=== PATIENT | female | born 1940 | race Caucasian/White ===

== ENCOUNTER 2019-11-30 01:25 | Emergency (ER) | payer OTHER ==
[2019-11-30] MEDS ORDERED: MECLIZINE HCL 12.5 MG TAB ONE (01:55)
[2019-11-30] MEDS ORDERED: NA CHLORIDE 0.9% 1,000 ML ONE (01:55)
[2019-11-30] MEDS ORDERED: DIAZEPAM 2 MG TABLET ONE (01:55)
[2019-11-30 02:10] LABS: Basophils % 1.2 % (0-1.3); Hematocrit 37.5 % (36.0-45.0); MPV 7.6 fL (7.6-11.3); RBC Red Blood Cell Count 4.09 M/uL (3.86-4.86)
[2019-11-30 02:12] LABS: Protime INR 0.89
[2019-11-30 02:13] LABS: Urine Blood TRACE (NEG); Urine Glucose NEGATIVE (NEG); Urine Protein NEGATIVE (NEG); Urine Specific Gravity 1.025 (1.005-1.030); Urine pH 8.5 (5.0-7.0)
[2019-11-30 02:16] LABS: Urine Culture Reflex Order NOT NEEDED
[2019-11-30 02:17] LABS: Urine Bacteria >50 /HPF (<20)
[2019-11-30 02:40] LABS: BUN Blood Urea Nitrogen 6 mg/dL (7-18); Bicarbonate 24 mmol/L (21-32); Glucose Level 119 mg/dL (74-106); Potassium 3.9 mmol/L (3.5-5.1); Sodium Level 132 mmol/L (136-145); Troponin (Emerg Dept Use Only) < 0.02 ng/mL (0.0-0.045)
[2019-11-30] MEDS ORDERED: NITROFURAN MACRO 100 MG CAP PO ONE (04:28)
--- NOTE | 2019-11-30 05:36 | EDPHYS ---
Physician Documentation [facility] Name: Rubén Donovan Age: 79 yrs Sex: Female : 1940 Arrival Date: 11/30/2019 Time: 01:29 Bed 6 Private MD: ED Physician Zhang Garcia HPI: 11/29 01:33 This 79 yrs old Female presents to ER via Unassigned with complaints of rn dizziness and vomiting. 01:33 The patient presents with sense of spinning, vertigo. Onset: The symptoms/episode rn began/occurred just prior to arrival. Context: occurred at home, occurred while the patient was asleep, just prior to the episode the patient experienced no apparent symptoms. Modifying factors: The symptoms are alleviated by closing eyes, holding head still, the symptoms are aggravated by movement of head. Severity of symptoms: At their worst the symptoms were moderate in the emergency department the symptoms are unchanged. The patient has experienced a previous episode. Reports in bed, turned head and was extremely dizzy, assoc with vomiting, and worse with head movement, better with holding head still and closing eyes. Has had vertigo before and feels similar. . Historical: - Allergies: 01:56 Hydromorphone; lp1 01:56 Morphine; lp1 01:56 Codeine; lp1 01:56 Demerol; lp1 01:56 tramadol; lp1 - Home Meds: 01:56 Plavix Oral [Active]; Coreg Oral [Active]; Aspirin Oral [Active]; Flexeril Oral lp1 [Active]; Clonidine Oral [Active]; levothyroxine oral [Active]; - PMHx: 01:56 Hypertension; TIA; maxwell's palsy; Hypothyroidism; Hyperlipidemia; lp1 - PSHx: 01:56 Heart stents; Hysterectomy; Bladder suspension; lp1 - Immunization history:: Adult Immunizations up to date. - Family history:: not pertinent. - Social history:: Smoking status: Patient reports the use of cigarette tobacco products, smokes one-half pack cigarettes per day. - Hospitalizations: : No recent hospitalization is reported. ROS: 01:33 Constitutional: Negative for fever, chills, and weight loss, Eyes: Negative for injury, rn pain, redness, and discharge, Neck: Negative for injury, pain, and swelling, Cardiovascular: Negative for chest pain, palpitations, and edema, Respiratory: Negative for shortness of breath, cough, wheezing, and pleuritic chest pain, Abdomen/GI: Negative for abdominal pain, diarrhea, and constipation MS/Extremity: Negative for injury and deformity, Skin: Negative for injury, rash, and discoloration, Neuro: Negative for headache, weakness, numbness, tingling, and seizure. Exam: 01:33 Constitutional: This is a well developed, well nourished patient who is awake, alert, rn eyes closed Head/Face: Normocephalic, atraumatic. Eyes: Pupils equal round and reactive to light, extra-ocular motions intact. Symptoms worse with lateral eye gaze either way ENT: MMM Neck: Trachea midline, no thyromegaly or masses palpated, and no cervical lymphadenopathy. Supple, full range of motion without nuchal rigidity, or vertebral point tenderness. No Meningismus. Cardiovascular: Regular rate and rhythm. No pulse deficits. Respiratory: Lungs have equal breath sounds bilaterally, clear to auscultation. No increased work of breathing, no retractions or nasal flaring. Abdomen/GI: soft, non-tender MS/ Extremity: Pulses equal, no cyanosis. Neurovascular intact. Full, normal range of motion. Equal circumference. Neuro: Awake and alert, GCS 15, oriented to person, place, time, and situation. + (chronic) left upper and lower facial weakness. Moves all 4 extremities with 5/5 strength and sensation intact. Normal speech. Normal finger to nose and coordination. Vital Signs: 01:30 BP 213 / 105; Pulse 81; Resp 18; Pulse Ox 99% on R/A; Weight 49.9 kg (R); Pain 0/10; lp1 01:40 BP 205 / 89; Pulse 73; Resp 17; Pulse Ox 99% on R/A; lp1 02:30 BP 188 / 158; Pulse 84; Resp 16; Pulse Ox 98% ; rr5 03:10 BP 178 / 79; Pulse 77; Resp 14; Pulse Ox 99% on R/A; rr5 03:39 Temp 97.6(O); lp1 04:01 BP 179 / 69; Pulse 79; Resp 18; Pulse Ox 98% ; ah 05:15 BP 192 / 80; Pulse 71; Resp 16; Pulse Ox 98% ; ah MDM: 01:29 Patient medically screened. rn 03:21 ED course: Pt improved, BP has improved without intervention, no acute findings on ct rn head, ct head angio and neck angio pending results. . 04:23 Differential diagnosis: CVA, idiopathic dizziness, TIA, vertigo. Data reviewed: vital rn signs, nurses notes, lab test result(s), EKG, radiologic studies. Counseling: I had a detailed discussion with the patient and/or guardian regarding: the historical points, exam findings, and any diagnostic results supporting the discharge/admit diagnosis, lab results, radiology results, the need for outpatient follow up, to return to the emergency department if symptoms worsen or persist or if there are any questions or concerns that arise at home. Response to treatment: the patient's symptoms have markedly improved after treatment. ED course: Pt with UTI, and what seems like vertigo. CT head and ct head/neck angio neg for acute stenosis or blockage. Pt improved, BP improved. Plan to dc with abx if can ambulate and send home safely. . 05:32 ED course: Patient ambulated well with minimal assistance, patient does not want to be rn admitted, states she feels better and wants to go home, will dc home with abx for UTI, and meclizine for vertigo. Given return precautions. Told her safer thing to do would be to put her in hospital, but patient insists on trial at home. . 11/29 01:30 Order name: Basic Metabolic Panel; Complete Time: 02:58 rn 11/29 01:30 Order name: CBC with Diff; Complete Time: 02:58 rn 11/29 01:30 Order name: Protime (+inr); Complete Time: 02:58 rn 11/29 01:30 Order name: Ptt, Activated; Complete Time: 02:58 rn 11/29 01:30 Order name: Troponin (emerg Dept Use Only); Complete Time: 02:58 rn 11/29 01:40 Order name: Urine Microscopic Only rn 11/29 01:30 Order name: CT Head Brain wo Cont rn 11/29 01:40 Order name: Urine Microscopic Only; Complete Time: 02:58 EDMS 11/29 01:42 Order name: [facility] 11/29 01:42 Order name: Urine Dipstick--Ancillary (enter results); Complete Time: 02:58 [facility] 11/29 02:14 Order name: CT Head Angio rn 11/29 02:14 Order name: CT Neck Angio rn 11/29 01:30 Order name: EKG; Complete Time: 01:32 rn 11/29 01:30 Order name: Cardiac monitoring; Complete Time: :59 rn 11/29 01:30 Order name: EKG - Nurse/Tech; Complete Time: 02:23 rn 11/29 01:30 Order name: IV Saline Lock; Complete Time: :59 rn 11/29 01:30 Order name: Labs collected and sent; Complete Time: :59 rn 11/29 01:30 Order name: NPO; Complete Time: :59 rn 11/29 01:30 Order name: O2 Per Protocol; Complete Time: :59 rn 11/29 01:30 Order name: O2 Sat Monitoring; Complete Time: :59 rn 11/29 01:30 Order name: Urine Dipstick-Ancillary (obtain specimen); Complete Time: 02:00 rn Administered Medications: 02:22 Drug: NS 0.9% 500 ml Route: IV; Rate: bolus; Site: right antecubital; 03:30 Follow up: Response: No adverse reaction; IV Status: Completed infusion; IV Intake: ah 500ml 02:22 Drug: Meclizine 50 mg Route: PO; 03:25 Follow up: Response: No adverse reaction 02:22 Drug: Valium 2 mg Route: PO; 03:25 Follow up: Response: No adverse reaction 03:25 Follow up: Response: No adverse reaction 04:20 Drug: Macrobid 100 mg Route: PO; 05:20 Follow up: Response: No adverse reaction Disposition: 11/30/19 05:35 Discharged to Home. Impression: Vertigo. - Condition is Stable. - Discharge Instructions: Urinary Tract Infection, Adult, Vertigo. - Prescriptions for Zofran ODT 4 mg Oral tablet,disintegrating - place 1 tablet by TRANSLINGUAL route every 8 hours As needed; 20 tablet. Meclizine 25 mg Oral Tablet - take 1 tablet by ORAL route every 8 hours As needed; 30 tablet. Macrobid 100 mg Oral Capsule - take 1 capsule by ORAL route every 12 hours for 7 days; 14 capsule. - Medication Reconciliation Form, Thank You Letter, Antibiotic Education, Prescription Opioid Use form. - Follow up: Chris Feliz MD; When: 2 - 3 days; Reason: Recheck today's complaints, Re-evaluation by your physician. - Problem is new. - Symptoms have improved. Signatures: Dispatcher [employer] EDND Zhang Garcia MD MD rn Pena, Laura RN RN 1 Morelia Burks RN RN Corrections: (The following items were deleted from the chart) 02:18 01:41 Urine Culture+BA.LAB.BRZ ordered. EDND EDND 02:18 01:43 UA MICROSCOPIC+U.LAB.BRZ ordered. [facility] EDND 06:20 05:35 11/30/2019 05:35 Discharged to Home. Impression: Vertigo. Condition is Stable. ah Forms are Medication Reconciliation Form, Thank You Letter, Antibiotic Education, Prescription Opioid Use. Follow up: Chris Feliz; When: 2 - 3 days; Reason: Recheck today's complaints, Re-evaluation by your physician. Problem is new. Symptoms have improved. rn
--- NOTE | 2019-11-30 05:36 | ER ---
Nurse's Notes [facility] Name: Rubén Donovan Age: 79 yrs Sex: Female : 1940 Arrival Date: 11/30/2019 Time: 01:29 Bed 6 Private MD: Diagnosis: Vertigo Presentation: 11/29 01:30 Chief complaint: EMS states: Called for patient with dizziness and vomiting that began lp1 about 2330 tonight; States dizziness and nausea with movement of head, hx of vertigo and TIA; Per EMS, patient hypertensive at 210/120. 01:30 Coronavirus screen: The patient has NOT traveled to [place] in the past 14 days. The lp1 patient has NOT had contact with known and/or suspected case of Coronavirus. Ebola Screen: No symptoms or risks identified at this time. Initial Sepsis Screen: Does the patient meet any 2 criteria? No. Patient's initial sepsis screen is negative. Does the patient have a suspected source of infection? No. Patient's initial sepsis screen is negative. Risk Assessment: Do you want to hurt yourself or someone else? Patient reports no desire to harm self or others. Care prior to arrival: Medication(s) given: zofran 4 mg, IV initiated. 20 GA, in the right antecubital area, Glucose check: 150. 01:30 Method Of Arrival: EMS: [facility] lp1 01:30 Acuity: CHAPIN 2 lp1 02:43 Onset of symptoms was November 29, 2019. ah Historical: - Allergies: 01:56 Hydromorphone; lp1 01:56 Morphine; lp1 01:56 Codeine; lp1 01:56 Demerol; lp1 01:56 tramadol; lp1 - Home Meds: 01:56 Plavix Oral [Active]; Coreg Oral [Active]; Aspirin Oral [Active]; Flexeril Oral lp1 [Active]; Clonidine Oral [Active]; levothyroxine oral [Active]; - PMHx: 01:56 Hypertension; TIA; maxwell's palsy; Hypothyroidism; Hyperlipidemia; lp1 - PSHx: 01:56 Heart stents; Hysterectomy; Bladder suspension; lp1 - Immunization history:: Adult Immunizations up to date. - Family history:: not pertinent. - Social history:: Smoking status: Patient reports the use of cigarette tobacco products, smokes one-half pack cigarettes per day. - Hospitalizations: : No recent hospitalization is reported. Screenin:53 Abuse screen: Denies threats or abuse. Denies injuries from another. Nutritional lp1 screening: No deficits noted. Tuberculosis screening: No symptoms or risk factors identified. Fall Risk Total De Dios Fall Scale indicates High Risk Score (45 or more points). Fall prevention measures have been instituted. Side Rails Up X 2 As available patient and family educated on Fall Prevention Program and Strategies. Assessment: 02:00 General: Appears uncomfortable, Behavior is calm, cooperative. Pain: Denies pain. ah Neuro: Level of Consciousness is awake, alert, Oriented to person, place, time, situation, Aerodynamic Consultant are equal bilaterally Gait is Speech is normal, left side affected by bells palsy. Pupils are PERRLA, Reports dizziness, since 1130pm. Cardiovascular: Heart tones S1 S2 present Capillary refill < 3 seconds Patient's skin is warm and dry. Pulses are palpable in right radial artery, right dorsalis pedis artery, left radial artery and left dorsalis pedis artery. Respiratory: Airway is patent Respiratory effort is even, unlabored, Respiratory pattern is regular, symmetrical, Breath sounds are clear bilaterally. GI: Abdomen is non-distended, Bowel sounds present X 4 quads. Reports vomiting, since waking up dizzy. : Reports burning with urination. EENT: No signs and/or symptoms were reported regarding the EENT system. Derm: No signs and/or symptoms reported regarding the dermatologic system. Skin is intact, is healthy with good turgor, Skin is dry, Skin temperature is warm. 03:00 Reassessment: Patient appears in no apparent distress at this time. Patient and/or ah family updated on plan of care and expected duration. Pain level reassessed. Patient is alert, oriented x 3, equal unlabored respirations, skin warm/dry/pink. 04:15 Reassessment: Patient appears in no apparent distress at this time. Patient and/or ah family updated on plan of care and expected duration. Pain level reassessed. Patient is alert, oriented x 3, equal unlabored respirations, skin warm/dry/pink. Stood Pt up bedside, attempted to walk and Pt states that she is still too dizzy and is unable to walk at this time. Assisted Pt back into bed and she is setting up. She states that she wants to try again soon. 05:10 Reassessment: Pt ambulated with assist x2 staff approx 40 ft. She states that shes ah still slightly dizzy but denies any nausea. 06:19 Reassessment: Pt able to ambulate with staff x1 and . Pt more steady on feet at this time. She states she feels confident going home. Vital Signs: 01:30 BP 213 / 105; Pulse 81; Resp 18; Pulse Ox 99% on R/A; Weight 49.9 kg (R); Pain 0/10; lp1 01:40 BP 205 / 89; Pulse 73; Resp 17; Pulse Ox 99% on R/A; lp1 02:30 BP 188 / 158; Pulse 84; Resp 16; Pulse Ox 98% ; rr5 03:10 BP 178 / 79; Pulse 77; Resp 14; Pulse Ox 99% on R/A; rr5 03:39 Temp 97.6(O); lp1 04:01 BP 179 / 69; Pulse 79; Resp 18; Pulse Ox 98% ; ah 05:15 BP 192 / 80; Pulse 71; Resp 16; Pulse Ox 98% ; ah ED Course: 01:29 Patient arrived in ED. rn 01:29 Zhang Garcia MD is Attending Physician. rn 01:35 Patient has correct armband on for positive identification. Bed in low position. Call lp1 light in reach. bus monitor on. Pulse ox on. NIBP on. 01:44 Mayte Vasquez, MAISHA is Primary Nurse. lp1 01:45 Arm band placed on right wrist. lp1 01:[address] via stretcher. lp1 01:52 Triage completed. lp1 01:53 Maintain EMS IV. Dressing intact. Good blood return noted. Site clean \T\ dry. Gauge \T\ lp 1 site: 20g IV to R AC. 02:10 CT Head Brain wo Cont In Process Unspecified. EDMS 02:[address] via stretcher. ah 03:27 CT Head Angio In Process Unspecified. EDMS 03:29 CT Neck Angio In Process Unspecified. EDMS 05:35 Chris Feliz MD is Referral Physician. rn 06:00 No provider procedures requiring assistance completed. IV discontinued, intact, ah bleeding controlled, No redness/swelling at site. Pressure dressing applied. Administered Medications: 02:22 Drug: NS 0.9% 500 ml Route: IV; Rate: bolus; Site: right antecubital; 03:30 Follow up: Response: No adverse reaction; IV Status: Completed infusion; IV Intake: ah 500ml 02:22 Drug: Meclizine 50 mg Route: PO; 03:25 Follow up: Response: No adverse reaction 02:22 Drug: Valium 2 mg Route: PO; 03:25 Follow up: Response: No adverse reaction 03:25 Follow up: Response: No adverse reaction 04:20 Drug: Macrobid 100 mg Route: PO; 05:20 Follow up: Response: No adverse reaction ah Intake: 03:30 IV: 500ml; Total: 500ml. Outcome: 05:35 Discharge ordered by . rn 06:00 Discharged to home via wheelchair. 06:00 Condition: stable 06:00 Discharge instructions given to patient, family, Instructed on discharge instructions, follow up and referral plans. medication usage, Demonstrated understanding of instructions, follow-up care, medications, Prescriptions given X 1, 2, 3. 06:20 Patient left the ED. Addendum: 12/02/2019 07:26 Addendum: Culture Results: Positive urine culture. No further action required. Bacteria e b sensitive to prescribed antibiotic. Signatures: Dispatcher [employer] EDMS Zhang Garcia MD MD rn Pena, Laura RN RN lp1 Starr Solis Raymond, RN RN rr5 Morelia Burks RN RN Corrections: (The following items were deleted from the chart) 11/29 02:01 01:30 BP 213 / 105; Pulse 81bpm; Resp 18bpm; Pulse Ox 99% RA; lp1 lp1
[2019-11-30 06:40] VITALS: TEMP 97.6
[2019-11-30 06:42] VITALS: O2SAT 98
[2019-11-30 06:43] VITALS: BP 192/80
--- NOTE | 2019-11-30 08:24 | EKG ---
Test Date: 2019-11-30 Test Time: 02:24:44 Structural Steel Painter: JACQUELINE MEASUREMENT RESULTS: Intervals: Rate: 80 LA: 204 QRSD: 82 QT: 398 QTc: 459 [place]: P: 69 LA: 204 QRS: -25 T: 75 INTERPRETIVE STATEMENTS: Normal sinus rhythm Possible Left atrial enlargement Left ventricular hypertrophy Abnormal ECG Compared to ECG 02/18/2014 10:58:32 Left ventricular hypertrophy now present Electronically Signed On 11-30-19 08:23:32 MANAGER GROUP by Carlos Burks
--- NOTE | 2019-11-30 10:11 | RAD REPORT ---
EXAM DESCRIPTION: 1. CT neck angiography with IV contrast. 2. CT head angiography with IV contrast CLINICAL HISTORY: 79-year-old female with dizziness and vomiting. TECHNIQUE: Following dynamic intravenous nonionic contrast infusion, multiple axial helical CT image s with multiplanar reconstructions were obtained through the head and neck. No MIP images were obtain ed. The CT study is performed according to ALARA (as low as reasonably achievable) or ALARA/IMAGE GEN TLY, with automatic adjustment of mA and/or kV according to patient size. Performed on: 11/30/2019 at 2:32 AM COMPARISON: Head CT performed on 11/30/2019 FINDINGS: CTA NECK: AORTA: The aortic arch is well imaged and demonstrates conventional branching. The origins of the left sub clavian artery, left common carotid artery and innominate artery are patent. There is mild stenosis i nvolving the proximal left common carotid artery. There are atherosclerotic calcifications along the origin of the left subclavian artery. VERTEBRAL ARTERIES: The LEFT vertebral artery is normal in caliber and contour without evidence of dissection. There may be mild to moderate stenosis at the origin of the LEFT vertebral artery. Additionally, the LEFT verte bral artery appears to terminate in a posterior inferior cerebellar artery. The RIGHT vertebral artery is normal in caliber and contour without evidence of dissection or signifi cant stenosis. CAROTID ARTERIES: The LEFT common carotid artery is unremarkable. There are mild atherosclerotic calcifications along t he distal LEFT common carotid artery. There is no evidence of significant stenosis, dissection or occ lusion. The carotid bulb demonstrates moderate calcified atherosclerotic plaque. There is a mild st enosis of the proximal LEFT internal carotid artery measuring less than 50%. The remainder of the LEF T internal carotid artery is normal in caliber and contour without evidence of significant stenosis, dissection or occlusion. There are atherosclerotic calcifications along the proximal LEFT external ca rotid artery. The LEFT external carotid artery is otherwise unremarkable There is a stent along the distal RIGHT common carotid artery. The RIGHT common carotid artery is pat ent and is grossly unremarkable. There is no evidence of significant stenosis, dissection or occlusio n. The carotid bulb moderate calcified atherosclerotic plaque. There is mild stenosis of the proximal RIGHT internal carotid artery measuring less than 50%. The remainder of the RIGHT internal carotid a rtery is unremarkable. There is no evidence of stenosis, dissection or occlusion. There are mild athe rosclerotic calcifications involving the proximal RIGHT external carotid artery. The RIGHT external c arotid artery is unremarkable. CTA HEAD: LEFT: INTERNAL CAROTID ARTERY: The distal internal carotid artery is unremarkable. There are atherosclerotic calcifications along th e cavernous LEFT ICA. 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 ANTERIOR CEREBRAL ARTERY: he A1 segment is normal in caliber and contour. The A2 segment is normal i n caliber and contour. The region of the anterior communicating artery is unremarkable. MIDDLE CEREBRAL ARTERY: The M1 segment is normal in caliber and contour. The M2 branches normal in c aliber and contour. POSTERIOR CEREBRAL ARTERY: he P1 segment is normal in caliber and contour. The P2 segment is normal in caliber and contour. The left posterior communicating artery is patent. VERTEBRAL ARTERY: The intradural left vertebral artery appears to terminate in the posterior inferio r cerebellar artery. RIGHT: INTERNAL CAROTID ARTERY: The distal internal carotid artery is unremarkable. There are atherosclerotic calcifications along th e cavernous RIGHT ICA. ANTERIOR CEREBRAL ARTERY: The A1 segment is normal in caliber and contour. The A2 segment is normal in caliber and contour. MIDDLE CEREBRAL ARTERY: he M1 segment is normal in caliber and contour. The M2 branches normal in ca liber and contour. POSTERIOR CEREBRAL ARTERY: The P1 segment is normal in caliber and contour. The P2 segment is normal in caliber and contour. The right posterior communicating artery is patent. VERTEBRAL ARTERY: The intradural right vertebral artery is normal in caliber and contour. BASILAR ARTERY: The basilar artery is small in caliber but is normal in contour and is patent withou t significant stenosis. DURAL VENOUS SINUSES: The dural venous sinuses are patent. NON-ANGIOGRAPHIC FINDINGS: There is scarring and/or fibrosis in the visualized lung apices. The thyroid gland is within normal l imits. There is mild mucosal thickening of the left maxillary sinus. The orbital contents are grossly unremarkable. There is mild to moderate degenerative disc disease at C4-C5. IMPRESSION: CTA NECK: 1. Mild stenosis at the origin of the left vertebral artery. 2. Mild stenosis involving the proximal internal carotid arteries bilaterally measuring less than 50% as per the NASCET criteria. 3. Patent stent within the distal right common carotid artery. CTA HEAD: 1. The distal left vertebral artery appears to terminate in a posterior inferior cerebellar artery. 2. 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 3. The basilar artery is patent but diminutive in caliber throughout its course. 4. Otherwise, unremarkable intracranial CTA. There is no significant stenosis, occlusion or vascular malformation. Electronically signed by: Leatha Zheng DO 11/30/2019 4:06 AM SUPERVISOR FABRICATION AND ASSEMBLY Due to temporary technical issues with the PACS/Fluency reporting system, reports are being signed by the in house radiologist as a courtesy to ensure prompt reporting. The interpreting radiologist is f ully responsible for the content of the report.
--- NOTE | 2019-11-30 10:13 | RAD REPORT ---
EXAM DESCRIPTION: CT head without IV contrast CLINICAL HISTORY: 79-year-old female with dizziness and vomiting TECHNIQUE: Multiple axial CT images of the brain were performed followed by sagittal and coronal rec onstructed images. The CT study is performed according to ALARA (as low as reasonably achievable) or ALARA/IMAGE GENTLY, with automatic adjustment of mA and/or kV according to patient size. Performed on: 11/30/2019 at 1:49 AM Comparisons: Head CT performed on 06/21/2017. FINDINGS: There is no evidence of mass, acute mass effect or midline shift. There are no acute extra -axial fluid collections. There is no evidence of acute intracranial hemorrhage. There are calcific ations along the cavernous carotid arteries. The cerebral sulci and ventricles are prominent consistent with mild cerebral volume loss. There are scattered areas of decreased attenuation within the subcortical and periventricular white m atter most likely due to mild chronic microangiopathy. There is no significant mucosal thickening of the paranasal sinuses. The mastoid air cells are clear. The orbital contents are grossly unremarkable. No acute osseous abnormalities are identified. No focal soft tissue abnormalities are identified. IMPRESSION: 1. There is no evidence of acute intracranial pathology. 2. Mild cerebral atrophy with findings consistent with mild chronic microangiopathy. Electronically signed by: Leatha Zheng DO 11/30/2019 2:40 AM LIFE SCIENCE TEACHER Due to temporary technical issues with the PACS/Fluency reporting system, reports are being signed by the in house radiologist as a courtesy to ensure prompt reporting. The interpreting radiologist is f ully responsible for the content of the report.
== END 2019-11-30 06:20 | disposition home or self-care (01) ==
LOC: ER 01:25
DX: R42 Dizziness and giddiness (principal); I10 Essential (primary) hypertension; E03.9 Hypothyroidism, unspecified; E78.5 Hyperlipidemia, unspecified; Z95.818 Presence of other cardiac implants and grafts; F17.210 Nicotine dependence, cigarettes, uncomplicated; Z79.01 Long term (current) use of anticoagulants; Z79.82 Long term (current) use of aspirin; Z88.5 Allergy status to narcotic agent; Z86.73 Personal history of transient ischemic attack (TIA), and cerebral infarction without residual deficits
CPT/HCPCS: 93005; 87088; 85025; 87086; 80048; 36415; 85610; 85730; 87077; 87186; 84484; 70450; 70496; 70498; 96360; 99285; Q9967 ×2; J7030; 81003; 81015; J8597

== ENCOUNTER 2021-10-28 13:11 | Emergency (ER) | payer OTHER, BC ==
--- OUTSIDE RECORDS SUMMARY | 2021-10-28 13:13 | XMS REPORT | Continuity of Care Document ---
:1940 Author Organization [facility] t Address [facility] [address] [place] [address] Care Team Providers Name Role Phone SOLIS, Rohit Attending Clinician Unavailable MORIAH Attending Clinician Unavailable Solis OSCAR, Rohit Attending Clinician Patrick HERNANDEZ Attending Clinician John Abreu MD Attending Clinician Only, Test Attending Clinician Unavailable Doctor Unassigned, Name Attending Clinician Unavailable Pob, Lab Main Attending Clinician Unavailable Rohit CRUZ Admitting Clinician Unavailable Solis OSCAR, Rohit Admitting Clinician Payers Payer Name Policy Type Policy Number Effective Date Expiration Date Iam tay MEDICARE PART A [id number] 2006 \T\ B 00:00:00 [employer] [id number] 2012 00:00:00 Problems This patient has no known problems. Allergies, Adverse Reactions, Alerts Allergy Allergy Status Severity Reaction(s) Onset Inactive Treating Comm ents Source Name Type Date Date Clinician Nitrofur Propensi Active Rash 2020-0 Univer s antoin ty to 06-18 ity of Monohyd/ adverse 00:00: [place] M-Cryst reaction 00 Medical s Branch Morphine Propensi Active Nausea 2020-0 Univer s ty to and/or 06-18 ity of adverse Vomiting 00:00: [place] reaction 00 Medical s Branch NITROFUR DRUG Active Rash 2020-0 Univers ANTOIN - ity of MONOHYD/ 00:00: [place] M-CRYST 00 Medical Branch MORPHINE DRUG Active N/V 2020-0 Univers INGREDI 06-18 ity of 00:00: [place] 00 Medical Branch CODEINE DRUG Active N/V 2020-0 Univers INGREDI -17 ity of 00:00: [place] 00 Medical Branch HYDROMOR DRUG Active N/V Univers PHONE INGREDI 06-14 ity of 00:00: [place] 00 Medical Branch Codeine Propensi Active Nausea Univers ty to and/or 06-14 ity of adverse Vomiting 00:00: [place] reaction 00 Medical s Branch Hydromor Propensi Active Nausea Univer s phone ty to and/or 06-14 ity of adverse Vomiting 00:00: [place] reaction 00 Medical s Branch Social History Social Habit Start Date Stop Date Quantity Comments Source Exposure to Not sure [facility] SARS-CoV-2 (event) Medica l Branch Sex Assigned At [facility] Medical Branch Tobacco use and 2020-09-12 2020-09-12 Never used [facility] exposure 00:00:00 00:00:00 Medical Branch Smoking Status Start Date Stop Date Source Unknown if ever smoked [facility] Current every day smoker 2020-09-12 [facility] Start Stop Current Ordering Indication Dosage Frequency Signature Comments Components Source Medication Medication Date Date Medication? Clinician (SIG) Name Name carvediloL 2019-09 Yes 12.5mg Take 12.5 Univers 12.5 mg 2-16 mg by ity of tablet 22:19: mouth 2 [place] 53 (two) Medical times Branch daily with meals. Levothyroxi 2019-09 Yes 1{capsu Take 1 U nivers ne 25 mcg 2-16 le} capsule by ity of capsule 22:19: mouth [place] 53 daily. Medical Branch cyclobenzap 2019-09 Yes 10mg Take 10 mg Univers rine 10 mg 2-16 by mouth 3 ity of tablet 22:19: (three) [place] 53 times Medical daily. Branch gabapentin 2019-09 Yes 300mg Take 300 Un rad ER 300 mg 2-16 mg by ity of tablet, 22:19: mouth [place] extended 53 daily. Medical release 24 Branch hr ASA/calcium 2019-09 Yes 81mg Take 81 mg Univers carb/mag/al 2-16 by mouth ity of uminum 22:19: daily. [place] (ASPIRIN, 53 Medical BUFFERED Branch ORAL) HYDROcodone 2019-09 Yes 2745 1{tbl} Take 1 Un rad -acetaminop 2-16 tablet by ity of hen 5-325 22:19: mouth [place] mg tablet 53 every 6 Medical (six) Branch hours as needed. Indication s: chronic pain vit 2019-09 Yes 1{capsu Take 1 Univers C-E-zinc 2-16 le} capsule by ity o f ox-megan-lut 22:19: mouth 2 [place] -zeax 53 (two) Medical (ICAPS times Branch AREDS2) 250 daily. mg-200 unit -12.5 mg-1 mg Cap ondansetron 2019-09- No 4mg 4 mg, Slow Univers (ZOFRAN 11-13 IV Push, ity of (PF)) 22:00: 20:25 ONCE, 1 [place] injection 4 00 :00 dose, Wed Med ical mg 09/12/20 Branch at 1600, Routine, PACU acetaminoph 2019-09- No 1000mg 1,000 mg, Univers en ADULT -09-12 IV ity of (OFIRMEV) 20:45: 20:10 [place]fusion, [place] injection 00 :00 Administer Medi lucio 1,000 mg over 15 Branch Minutes, ONCE, 1 dose, 09/12/20 at 1445, Routine, PACU
Indicatio n: Perioperat gerardo Patient hydralAZINE 2019-09 2020- No 10mg 10 mg, Uni vers (APRESOLINE 11-13- Slow IV ity of ) injection 20:15: 19:23 [place], [place] 10 mg 00 :00 ONCE, 1 Medical dose, Wed Branch 09/12/20 at 1415, STAT, PACU
In dication: Hypertensi ve Emergency vit 2019-09 Yes 1{capsu Take 1 Univers C-E-zinc 2-16 le} capsule by ity o f ox-megan-lut 18:58: mouth 2 [place] -zeax 59 (two) Medical (ICAPS times Branch AREDS2) 250 daily. mg-200 unit -12.5 mg-1 mg Cap carvediloL 2019-09 Yes 12.5mg Take 12.5 Univers 12.5 mg 2-16 mg by ity of tablet 18:58: mouth 2 [place] 59 (two) Medical times Branch daily with meals. Levothyroxi 2019-09 Yes 1{capsu Take 1 U nivers ne 25 mcg 2-16 le} capsule by ity of capsule 18:58: mouth [place] 59 daily. Medical Branch cyclobenzap 2019-09 Yes 10mg Take 10 mg Univers rine 10 mg 2-16 by mouth 3 ity of tablet 18:58: (three) [place] 59 times Medical daily. Branch gabapentin 2019-09 Yes 300mg Take 300 Un rad ER 300 mg 2-16 mg by ity of tablet, 18:58: mouth [place] extended 59 daily. Medical release 24 Branch hr ASA/calcium 2019-09 Yes 81mg Take 81 mg Univers carb/mag/al 2-16 by mouth ity of uminum 18:58: daily. [place] (ASPIRIN, 59 Medical BUFFERED Branch ORAL) HYDROcodone 2019-09 Yes 2745 1{tbl} Take 1 Un rad -acetaminop 2-16 tablet by ity of hen 5-325 18:58: mouth [place] mg tablet 59 every 6 Medical (six) Branch hours as needed. Indication s: chronic pain vit 2019-09 Yes 1{capsu Take 1 Univers C-E-zinc 2-16 le} capsule by ity o f ox-megan-lut 18:58: mouth 2 [place] -zeax 59 (two) Medical (ICAPS times Branch AREDS2) 250 daily. mg-200 unit -12.5 mg-1 mg Cap carvediloL 2019-09 Yes 12.5mg Take 12.5 Univers 12.5 mg 2-16 mg by ity of tablet 18:58: mouth 2 [place] 59 (two) Medical times Branch daily with meals. Levothyroxi 2019-09 Yes 1{capsu Take 1 U nivers ne 25 mcg 2-16 le} capsule by ity of capsule 18:58: mouth [place] 59 daily. Medical Branch cyclobenzap 2019-09 Yes 10mg Take 10 mg Univers rine 10 mg 2-16 by mouth 3 ity of tablet 18:58: (three) [place] 59 times Medical daily. Branch gabapentin 2019-09 Yes 300mg Take 300 Un rad ER 300 mg 2-16 mg by ity of tablet, 18:58: mouth [place] extended 59 daily. Medical release 24 Branch hr ASA/calcium 2019-09 Yes 81mg Take 81 mg Univers carb/mag/al 2-16 by mouth ity of uminum 18:58: daily. [place] (ASPIRIN, 59 Medical BUFFERED Branch ORAL) HYDROcodone 2019-09 Yes 2745 1{tbl} Take 1 Un rad -acetaminop 2-16 tablet by ity of hen 5-325 18:58: mouth [place] mg tablet 59 every 6 Medical (six) Branch hours as needed. Indication s: chronic pain vit 2019-09 Yes 1{capsu Take 1 Univers C-E-zinc 2-16 le} capsule by ity o f ox-megan-lut 18:58: mouth 2 [place] -zeax 59 (two) Medical (ICAPS times Branch AREDS2) 250 daily. mg-200 unit -12.5 mg-1 mg Cap carvediloL 2019-09 Yes 12.5mg Take 12.5 Univers 12.5 mg 2-16 mg by ity of tablet 18:58: mouth 2 [place] 59 (two) Medical times Branch daily with meals. Levothyroxi 2019-09 Yes 1{capsu Take 1 U nivers ne 25 mcg 2-16 le} capsule by ity of capsule 18:58: mouth [place] 59 daily. Medical Branch cyclobenzap 2019-09 Yes 10mg Take 10 mg Univers rine 10 mg 2-16 by mouth 3 ity of tablet 18:58: (three) [place] 59 times Medical daily. Branch gabapentin 2019-09 Yes 300mg Take 300 Un rad ER 300 mg 2-16 mg by ity of tablet, 18:58: mouth [place] extended 59 daily. Medical release 24 Branch hr ASA/calcium 2019-09 Yes 81mg Take 81 mg Univers carb/mag/al 2-16 by mouth ity of uminum 18:58: daily. [place] (ASPIRIN, 59 Medical BUFFERED Branch ORAL) HYDROcodone 2019-09 Yes 2745 1{tbl} Take 1 Un rad -acetaminop 2-16 tablet by ity of hen 5-325 18:58: mouth [place] mg tablet 59 every 6 Medical (six) Branch hours as needed. Indication s: chronic pain metoprolol 2019-09 2020- No ONCE INTRA Univers (LOPRESSOR) 2-16 -16 PROCEDURE, i ty of injection 18:35: 18:57 Starting [place] 00 :07 [facility] Medical 09/12/20 Branch at 1235, Until Thu09/12/20 at 1257, Routine, Intra-op propofoL IV 2019- 2020- No Intravenou Univers infusion 2-16 12-16 s, ONCE ity of 18:35: 18:57 INTRA [place] 00 :07 PROCEDURE, Medical Starting Branch Thu09/12/20 at 1235, Until Thu09/12/20 at 1257, Routine, Intra-op metoprolol 2019-09 2020- No ONCE INTRA Univers (LOPRESSOR) 11-13 PROCEDURE, i ty of injection 18:35: 18:57 Starting [place] 00 :07 [facility] 09/12/20 Branch at 1235, Until Thu09/12/20 at 1257, Routine, Intra-op propofoL IV 2019-09 2020- No Intravenou Univers infusion 11-13 12-16 s, ONCE ity of 18:35: 18:57 INTRA [place] 00 :07 PROCEDURE, Medical Starting Branch Thu09/12/20 at 1235, Until Thu09/12/20 at 1257, Routine, Intra-op metoprolol 2019-09 2020- No ONCE INTRA Univers (LOPRESSOR) 11-13 PROCEDURE, i ty of injection 18:35: 18:57 Starting [place] 00 :07 [facility] 09/12/20 Branch at 1235, Until Thu09/12/20 at 1257, Routine, Intra-op propofoL IV 2019-09 2020- No Intravenou Univers infusion 11-13 12-16 s, ONCE ity of 18:35: 18:57 INTRA [place] 00 :07 PROCEDURE, Medical Starting Branch Thu09/12/20 at 1235, Until Thu09/12/20 at 1257, Routine, Intra-op remifentani 2019-09 2020- No Intravenou Univers L (ULTIVA) 11-13 12-16 s, ONCE ity o f injection 18:30: 18:57 INTRA [place] 00 :07 PROCEDURE, Medical Starting Branch Thu09/12/20 at 1230, Until Thu09/12/20 at 1257, Routine, Intra-op remifentani 2019-09 2020- No Intravenou Univers L (ULTIVA) 11-13 12-16 s, ONCE ity o f injection 18:30: 18:57 INTRA [place] 00 :07 PROCEDURE, Medical Starting Branch Thu09/12/20 at 1230, Until Thu09/12/20 at 1257, Routine, Intra-op remifentani 2019-09 2020- No Intravenou Univers L (ULTIVA) 11-13 12-16 s, ONCE ity o f injection 18:30: 18:57 INTRA [place] 00 :07 PROCEDURE, Medical Starting Branch Thu09/12/20 at 1230, Until Thu09/12/20 at 1257, Routine, Intra-op lactated 2019-09 2020- No IV Univers ringers IV 2-12 09- Infusion, ity of infusion 18:25: 18:57 CONTINUOUS [place] 00 :07 PRN, Medical Starting Branch Thu09/12/20 at 1225, Until Thu09/12/20 at 1257, Routine, Intra-op lactated 2019-09 2020- No IV Univers ringers IV 2-12 09- Infusion, ity of infusion 18:25: 18:57 CONTINUOUS [place] 00 :07 PRN, Medical Starting Branch Thu09/12/20 at 1225, Until Thu09/12/20 at 1257, Routine, Intra-op lactated 2019-09 2020- No IV Univers ringers IV 2-09-12 Infusion, ity of infusion 18:25: 18:57 CONTINUOUS [place] 00 :07 PRN, Medical Starting Branch Thu09/12/20 at 1225, Until Thu09/12/20 at 1257, Routine, Intra-op water for 2019-09 Yes PRN, Univers irrigation 2-16 Starting ity o f irrigation 18:13: Thu [place] solution 09/12/20 Medical at 1213, Branch Until Discontinu ed, Routine, Intra-op sodium 2019-09 Yes PRN, Univers chloride 2-16 Starting ity of (NS) 18:13: Thu [place] injection 09/12/20 Medica l at 1213, Branch Until Discontinu ed, Routine, Intra-op neomycin-po 2019-09 Yes [facility]N, [facility] lym[facility]-16 Starting ity of amethasone 18:13: Thu [place] (MAXITROL) 09/12/20 Medic al 3.5 at 1213, Branch mg/g-10,000 Until unit/g-0.1 Discontinu % ed, ophthalmic Routine, ointment Intra-op Hyaluronida 2019-09 Yes PRN, [facility] se, Human 2-16 Starting ity of Recomb. 18:13: Thu [place] (HYLENEX) 09/12/20 Medica l injection at 1213, Branch Until Discontinu ed, Routine, Intra-op gentamicin 2019-09 Yes PRN, Univers injection 2-16 Starting ity of 18:12: Thu [place] 09/12/20 Medical at 1212, Branch Until Discontinu ed, BELLA, Intra-op eye block 2019-09 Yes PRN, Univers syringe 11 2-16 Starting ity o f mL 18:12: Thu [place] 00 09/12/20 Medical at 1212, Branch Until Discontinu ed, Intra-op EPINEPHrine 2019-09 Yes PRN, Univer s 1:1,000 (1 2-16 Starting ity o f mg/mL) 18:12: Thu [place] (ADRENALIN) 00 09/12/20 Medi lucio injection at 1212, Branch Until Discontinu ed, Routine, Intra-op DUOVISC 2019-09 Yes PRN, Univers (DUOVISC 2-16 Starting ity of VISCO 18:12: Thu [place] ELASTIC) 3 00 09/12/20 Medic al %-4 %(0.5 at 1212, Branch mL) 1 % Until (0.55 mL) Discontinu intraocular ed, injection Routine, Intra-op dexamethaso 2019-09 Yes PRN, Univer s ne 2-16 Starting ity of (DECADRON 18:12: Thu [place] PHOSPHATE) 00 09/12/20 Medic al injection at 1212, Branch Until Discontinu ed, Routine, Intra-op ceFAZolin 2019-09 Yes PRN, Univers (ANCEF) 2-16 Starting ity of injection 18:12: Thu [place] 09/12/20 Medical at 1212, Branch Until Discontinu ed, BELLA, Intra-op carbachoL 2019-09 Yes PRN, Univers (MIOSTAT) 2-16 Starting ity of 0.01 % 18:12: Thu [place] intraocular 00 09/12/20 Medi lucio injection at 1212, Branch Until Discontinu ed, Routine, Intra-op balanced 2019-09 Yes PRN, Univers salt irrig 2-16 Starting ity o f soln comb1 18:11: Thu [place] (BSS PLUS) 00 09/12/20 Medic al ophthalmic at 1211, Bran h solution Until 500 mL bag Discontinu ed, Routine, Intra-op mydriatic 2019-09 2020- No .5mL 0.5 mL, Univ ers #5 2-16 12- Left Eye, ity of ophthalmic 16:30: 16:38 ONCE, 1 [place] solution 00 :00 dose, Thu Medica l 0.5 mL 09/12/20 Branch syringe at 1030, Routine lactated 2020-1 2020- No 1000mL at 42 Unive rs ringers IV 2-16 12-16 mL/hr, ity of infusion 16:30: 16:38 1,000 mL, [place] 1,000 mL 00 :00 IV Medical Infusion, Branch ONCE, 1 dose, Thu09/12/20 at 1030, Routine, DSU Pre-op carvediloL 2020-0 Yes 12.5mg Take 12.5 Univers 12.5 mg 9-23 mg by ity of tablet 18:24: mouth 2 [place] 16 (two) Medical times Branch daily with meals. Levothyroxi 2020-0 Yes 1{capsu Take 1 U nivers ne 25 mcg 9-23 le} capsule by ity of capsule 18:24: mouth [place] 16 daily. Medical Branch cyclobenzap 2020-0 Yes 10mg Take 10 mg Univers rine 10 mg 9-23 by mouth 3 ity of tablet 18:24: (three) [place] 16 times Medical daily. Branch gabapentin 2020-0 Yes 300mg Take 300 Un rad ER 300 mg 9-23 mg by ity of tablet, 18:24: mouth [place] extended 16 daily. Medical release 24 Branch hr ASA/calcium 2020-0 Yes 81mg Take 81 mg Univers carb/mag/al 9-23 by mouth ity of uminum 18:24: daily. [place] (ASPIRIN, 16 Medical BUFFERED Branch ORAL) HYDROcodone 2020-0 Yes 2745 1{tbl} Take 1 Un rad -acetaminop 9-23 tablet by ity of hen 5-325 18:24: mouth [place] mg tablet 16 every 6 Medical (six) Branch hours as needed. Indication s: chronic pain vit 2020-0 Yes 1{capsu Take 1 Univers C-E-zinc 9-23 le} capsule by ity o f ox-megan-lut 18:24: mouth 2 [place] -zeax 16 (two) Medical (ICAPS times Branch AREDS2) 250 daily. mg-200 unit -12.5 mg-1 mg Cap carvediloL 2020-0 Yes 12.5mg Take 12.5 Univers 12.5 mg 9-23 mg by ity of tablet 18:24: mouth 2 [place] 16 (two) Medical times Branch daily with meals. Levothyroxi 2020-0 Yes 1{capsu Take 1 U nivers ne 25 mcg 9-23 le} capsule by ity of capsule 18:24: mouth [place] 16 daily. Medical Branch cyclobenzap 2020-0 Yes 10mg Take 10 mg Univers rine 10 mg 9-23 by mouth 3 ity of tablet 18:24: (three) [place] 16 times Medical daily. Branch gabapentin 2020-0 Yes 300mg Take 300 Un rad ER 300 mg 9-23 mg by ity of tablet, 18:24: mouth [place] extended 16 daily. Medical release 24 Branch hr ASA/calcium 2020-0 Yes 81mg Take 81 mg Univers carb/mag/al 9-23 by mouth ity of uminum 18:24: daily. [place] (ASPIRIN, 16 Medical BUFFERED Branch ORAL) HYDROcodone 2020-0 Yes 2745 1{tbl} Take 1 Un rad -acetaminop 9-23 tablet by ity of hen 5-325 18:24: mouth [place] mg tablet 16 every 6 Medical (six) Branch hours as needed. Indication s: chronic pain vit 2020-0 Yes 1{capsu Take 1 Univers C-E-zinc 9-23 le} capsule by ity o f ox-megan-lut 18:24: mouth 2 [place] -zeax 16 (two) Medical (ICAPS times Branch AREDS2) 250 daily. mg-200 unit -12.5 mg-1 mg Cap carvediloL 2020-0 Yes 12.5mg Take 12.5 Univers 12.5 mg 9-23 mg by ity of tablet 18:24: mouth 2 [place] 16 (two) Medical times Branch daily with meals. Levothyroxi 2020-0 Yes 1{capsu Take 1 U nivers ne 25 mcg 9-23 le} capsule by ity of capsule 18:24: mouth [place] 16 daily. Medical Branch cyclobenzap 2020-0 Yes 10mg Take 10 mg Univers rine 10 mg 9-23 by mouth 3 ity of tablet 18:24: (three) [place] 16 times Medical daily. Branch gabapentin 2020-0 Yes 300mg Take 300 Un ard ER 300 mg 9-23 mg by ity of tablet, 18:24: mouth [place] extended 16 daily. Medical release 24 Branch hr ASA/calcium 2020-0 Yes 81mg Take 81 mg Univers carb/mag/al 9-23 by mouth ity of uminum 18:24: daily. [place] (ASPIRIN, 16 Medical BUFFERED Branch ORAL) HYDROcodone 2020-0 Yes 2745 1{tbl} Take 1 Un rad -acetaminop 06-20 tablet by ity of hen 5-325 18:24: mouth [place] mg tablet 16 every 6 Medical (six) Branch hours as needed. Indication s: chronic pain vit 2020-0 Yes 1{capsu Take 1 Univers C-E-zinc 06-20 le} capsule by ity o f ox-megan-lut 18:24: mouth 2 [place] -zeax 16 (two) Medical (ICAPS times Branch AREDS2) 250 daily. mg-200 unit -12.5 mg-1 mg Cap ondansetron 2020-0 2020- No 4mg 4 mg, Slow Univers (ZOFRAN 06-20 IV Push, ity of (PF)) 17:15: 16:06 ONCE, 1 [place] injection 4 00 :00 dose, Wed Med ical mg 06/20/20 at [place] 1215, Routine, DSU Pre-op water for 2020-0 Yes PRN, Univers irrigation 06-20 Starting ity o f irrigation 16:15: Thu [place] solution 06/20/[address] Until Discontinu ed, Routine, Intra-op sodium 2020-0 Yes PRN, Univers chloride 06-20 Starting ity of (NS) 16:15: Thu [place] injection 06/20/[address] Until Discontinu ed, Routine, Intra-op neomycin-po 2020-0 Yes PRN, Univer s lymyxin-dex 06-20 Starting ity of amethasone 16:15: Thu (MAXITROL) 06/20/20 at Med ical 3.[address] [place] [address] mg/g-10,000 Until unit/g-0.1 Discontinu % ed, ophthalmic Routine, ointment Intra-op Hyaluronida 2020-0 Yes PRN, Univer s se, Human 06-20 Starting ity of Recomb. 16:14: Thu (HYLENEX) 06/20/20 at [facility] injection [address] [place] [address] Until Discontinu ed, Routine, Intra-op gentamicin 2020-0 Yes PRN, Univers injection 06-20 Starting ity of 16:14: Thu [place] 06/20/20 at [place] [id number], [place] Until Discontinu ed, BELLA, Intra-op eye block 2020-0 Yes PRN, Univers syringe 11 06-20 Starting ity o f mL 16:13: Thu06/20/20 at [facility] 1113, [place] Until Discontinu ed, Intra-op EPINEPHrine 2020-0 Yes PRN, Univer s 1:1,000 (1 06-20 Starting ity o f mg/mL) 16:12: Thu (ADRENALIN) 00 06/20/20 at [place] dical injection 111, [place] Until Discontinu ed, Routine, Intra-op DUOVISC 2020-0 Yes PRN, Univers (DUOVISC 06-20 Starting ity of VISCO 16:12: Thu ELASTIC) 3 06/20/20 at [facility] %-4 %(0.5 1111, [place] mL) 1 % Until (0.55 mL) Discontinu intraocular ed, injection Routine, Intra-op dexamethaso 2020-0 Yes PRN, Univer s ne 06-20 Starting ity of (DECADRON 16:12: Thu PHOSPHATE) 06/20/20 at [facility] ical injection 111, [place] Until Discontinu ed, Routine, Intra-op ceFAZolin 2020-0 Yes PRN, Univers (ANCEF) 06-20 Starting ity of injection 16:12: Thu06/20/20 at [place] [id number], [place] Until Discontinu ed, BELLA, Intra-op carbachoL 2020-0 Yes PRN, Univers (MIOSTAT) 06-20 Starting ity of 0.01 % 16:11: Thu [place] intraocular 00 06/20/20 at [place] dical injection 1111, [place] Until Discontinu ed, Routine, Intra-op balanced 2020-0 Yes PRN, Univers salt irrig 06-20 Starting ity o f soln comb1 16:11: Thu (BSS PLUS) 00 06/20/20 at [facility] ical ophthalmic 1111, Branch solution Until 500 mL bag Discontinu ed, Routine, Intra-op mydriatic 2020-0 2020- No .5mL 0.5 mL, Univ ers #5 06-20 Right Eye, ity of ophthalmic 16:00: 16:06 ONCE, 1 [place] solution 00 :00 dose, Wed Medica l 0.5 mL 06/20/20 at [place] syringe 1100, Routine, DSU Pre-op lactated 2020-0 2020- No 1000mL at 20 Unive rs ringers IV 06-20 09-23 mL/hr, ity of infusion 16:00: 16:06 1,000 mL, [place] 1,000 mL 00 :00 IV Medical Infusion, Branch ONCE, 1 dose, Thu06/20/20 at 1100, Routine, DSU Pre-op vit 2020-0 Yes 1{capsu Take 1 Univers C-E-zinc 9-21 le} capsule by ity o f ox-megan-lut 18:10: mouth 2 [place] -zeax 14 (two) Medical (ICAPS times Branch AREDS2) 250 daily. mg-200 unit -12.5 mg-1 mg Cap Levothyroxi 2020-0 Yes 1{capsu Take 1 U nivers ne 25 mcg 9-21 le} capsule by ity of capsule 18:10: mouth [place] 13 daily. Medical Branch cyclobenzap 2020-0 Yes 10mg Take 10 mg Univers rine 10 mg 9-21 by mouth 3 ity of tablet 18:10: (three) [place] 13 times Medical daily. Branch gabapentin 2020-0 Yes 300mg Take 300 Un rad ER 300 mg 9-21 mg by ity of tablet, 18:10: mouth [place] extended 13 daily. Medical release 24 Branch hr ASA/calcium 2020-0 Yes 81mg Take 81 mg Univers carb/mag/al 9-21 by mouth ity of uminum 18:10: daily. [place] (ASPIRIN, 13 Medical BUFFERED Branch ORAL) HYDROcodone 2020-0 Yes 2745 1{tbl} Take 1 Un rad -acetaminop 9-21 tablet by ity of hen 5-325 18:10: mouth [place] mg tablet 13 every 6 Medical (six) Branch hours as needed. Indication s: chronic pain carvediloL 2019-0 Yes 12.5mg Take 12.5 Univers 12.5 mg 9-21 mg by ity of tablet 18:10: mouth 2 [place] 12 (two) Medical times Branch daily with meals. Vital Signs Vital Name Observation Time Observation Value Comments Source Systolic blood 2020-09-12 20:30:00 177 mm[Hg] Univer sity of pressure [facility] Diastolic blood 2020-09-12 20:30:00 58 mm[Hg] Unive rsity of pressure [facility] Heart rate 2020-09-12 20:30:00 84 /min [facility] [place] [facility] Body temperature 2020-09-12 20:30:00 36.67 Deborah [facility] [place] [facility] Respiratory rate 2020-09-12 20:30:00 14 /min [facility] [place] [facility] Oxygen saturation in 2020-09-12 20:30:00 95 /min University of Arterial blood by [facility] lucio Pulse oximetry Branch Body height 2020-09-10 16:30:00 154.9 cm [facility] [place] [facility] Body weight 2020-09-10 16:30:00 52.164 kg [facility] [place] [facility] BMI 2020-09-10 16:30:00 21.73 kg/m2 [facility] [place] [facility] Respiratory rate 2020-09-12 18:53:00 18 /min Univ ersity of [facility] Branch Systolic blood 2020-06-20 17:59:00 162 mm[Hg] Univer sity of pressure [facility] Diastolic blood 2020-06-20 17:59:00 80 mm[Hg] Unive rsity of pressure [place] [facility] [place] Body temperature 2020-06-20 17:59:00 36.44 Deborah [facility] [place] [facility] Respiratory rate 2020-06-20 17:59:00 14 /min [facility] [place] [facility] Heart rate 2020-06-20 17:45:00 68 /min [facility] [place] [facility] Oxygen saturation in 2020-06-20 17:45:00 100 /min University of Arterial blood by [facility] lucio Pulse oximetry Branch Body height 2020-06-14 17:44:00 158.8 cm [facility] [place] [facility] Body weight 2020-06-14 17:44:00 52.164 kg [facility] [place] [facility] BMI 2020-06-14 17:44:00 20.69 kg/m2 [facility] Branch Procedures Procedure Date / Time Performed Performing Clinician Sour e ASSIGNMENT OF BENEFITS 2020-09-11 16:55:42 Doctor Unassigned, No [facility] Name Medical Branch ASSIGNMENT OF BENEFITS 2020-06-15 17:44:48 Doctor Unassigned, No [facility] Medical [place] Encounters Start End Encounter Admission Attending Care Care Encounter Source Date/Time Date/Time Type Type Clinicians Facility Department ID 2021-07-27 Outpatient TORRES AREVALO [id number] Univers 10:29:03 JUANCHO [facility] 2021-07-26 Outpatient R SOLIS [facility] [id number] Univers 18:46:02 JUANCHO keira [facility] 2021-02-05 2021-02-06 Outpatient MORIAH, [facility] [id number] [address] [place] 00:00:00 00:00:00 LUCILLE 191 Method i 2021-01-24 2021-01-24 Outpatient MORIAH, [facility] [id number] [address] [place] 00:00:00 00:00:00 LUCILLE 730 Method i 2020-12-11 2020-12-11 Outpatient [facility] [id number] [place] 00:00:00 00:00:00 528 Method i 2020-12-11 2020-12-11 Outpatient MORIAH, [facility] [id number] [place] 00:00:00 00:00:00 LUCILLE 462 Method i 2020-09-12 2020-09-12 [facility] [id number] Univers 10:15:00 14:52:00 Encounter Juancho Rodríguez [id number] ity of [place] [id number] [place] [id number] [facility] [address] 2020-09-12 2020-09-12 Anesthesia JohnsonSamir Diane [facility] 1. [id number] [id number] Univers 12:26:00 12:57:00 Ewa Abreu [id number] [id number] [id number] [facility] [address] 2020-09-11 2020-09-11 Laboratory Only, Adc Test [facility] 1.2.840. 114 [id number] Univers 10:58:45 11:13:45 Only Juancho Cruz 350.1.13.1 0 [id number] [id number] [facility] [address] 2020-09-11 2020-09-11 Outpatient R [facility] [id number] Univers 11:00:00 11:00:00 [id number] ity [facility] 2020-09-11 2020-09-11 Outpatient R [facility] [id number] Univers 11:00:00 11:00:00 ity of [facility] 2020-09-11 2020-09-11 Orders Doctor EWA [id number] [id number] Univers 00:00:00 00:00:00 Only Unassigned, CARRIE [id number] ity of [facility] [id number] [place] as [id number] [facility] [address] 2020-07-10 2020-07-10 Outpatient R [facility] [id number] Univers 11:30:00 11:30:00 [id number] ity of [facility] 2020-06-20 2020-06-20 [facility] [id number] Univers 10:40:00 13:24:00 Encounter Juancho Rodríguez [id number] [id number] [id number] [address] 2020-06-19 2020-06-19 Laboratory Only, Adc Test [facility] 1.2.840. 114 [id number] Univers 09:36:22 09:51:22 Only Juancho Cruz 350.1.13.1 0 [place] [id number] [address] 2020-06-19 2020-06-19 Outpatient R [facility] [id number] Univers 08:15:00 08:15:00 [id number] ity [facility] 2020-06-19 2020-06-19 [facility] [id number] Univers 08:15:00 08:15:00 JUANCHO itkeira [facility] 2020-06-15 2020-06-15 Senior Php Web Developer Benito, Adc Lab Main [facility] 1.2.8 40.114 [id number] Univers 12:47:34 13:02:34 Visit Juancho Cruz 350.1.13.1 0 [id number] [id number] [address] 2020-06-15 2020-06-15 [facility]patient [facility] [id number] [facility] 12:30:00 12:30:00 JUANCHO ity of [facility] 2020-06-15 2020-06-15 Orders Doctor EWA 1.2.840.114 [id number] Univers 00:00:00 00:00:00 Only Unassigned, CARRIE 350.1.13.10 ity of [place] [facility] 4.2.7.2.686 [place] [phone] [place] [address] Branch Results This patient has no known results.
--- NOTE | 2021-10-28 14:22 | RAD REPORT ---
EXAM DESCRIPTION: CT - Head Brain Wo Cont - 10/28/2021 2:14 pm CLINICAL HISTORY: DIZZINESS COMPARISON: Head angio dated 11/30/2019; Head Brain Wo Cont dated 11/30/2019 TECHNIQUE: All CT scans are performed using dose optimization technique as appropriate and may inclu de automated exposure control or mA/KV adjustment according to patient size. FINDINGS: No intracranial hemorrhage, hydrocephalus or extra-axial fluid collection.No areas of brai n edema or evidence of midline shift. Chronic small vessel ischemic changes. 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 Mild thickening in left maxillary sinus. The calvarium is intact. IMPRESSION: No acute intracranial abnormality.
[2021-10-28] MEDS ORDERED: ONDANSETRON 4 MG/2 ML VIAL ONE (14:37)
[2021-10-28] MEDS ORDERED: NA CHLORIDE 0.9% 500 ML ONE (14:38)
[2021-10-28] MEDS ORDERED: MECLIZINE HCL 12.5 MG TAB ONE (14:38)
[2021-10-28 14:40] LABS: Absolute Lymphocytes (CBC) 1.2 K/uL (0.7-4.9); Hematocrit 39.8 % (36.0-45.0); Lymphocytes % 6.2 % (15.3-44.8); MPV 7.3 fL (7.6-11.3); RBC Red Blood Cell Count 4.37 M/uL (3.86-4.86)
[2021-10-28 14:52] LABS: Potassium 3.9 mmol/L (3.5-5.1)
[2021-10-28 14:53] LABS: Protime INR 0.94
[2021-10-28 15:16] LABS: Urine Bacteria >50 /HPF (<20); Urine RBC <5 /HPF (NONE SEEN)
[2021-10-28] MEDS ORDERED: cloNIDine HCL 0.1 MG TAB ONE (16:18)
[2021-10-28 16:28] LABS: Blood Morphology Comment NOT SEEN (NOT SEEN); Platelet Estimate ADEQ; White Blood Cell Scan OK (OK)
[2021-10-28] MEDS ORDERED: CEFTRIAXONE 1000 MG/VIAL ONE (17:12)
[2021-10-28] MEDS ORDERED: NA CHLORIDE 0.9% 50 ML ONE (17:12)
--- NOTE | 2021-10-28 17:12 | RAD REPORT ---
EXAM DESCRIPTION: MRI - Brain Wo Cont - 10/28/2021 4:52 pm CLINICAL HISTORY: DIZZINESS COMPARISON: MRI BRAIN WITHOUT CONTRAST dated 10/26/2012 TECHNIQUE: Sagittal T1-weighted images were obtained along with PD/heavily T2-weighted and T2-FLAIR images. Axial DWI and ADC mapping sequences were also obtained along with coronal heavily T2-weighted images were obtained. FINDINGS: No intracranial hemorrhage, mass or acute infarction. There is no edema or shift of midlin e structures. No extra-axial fluid collections. Signal voids are seen as a normal finding in the narcisa r intracranial vessels. Mild chronic small vessel ischemic changes. Mucosal thickening in the left maxillary sinus. IMPRESSION: No acute intracranial abnormality. Specifically, no acute infarct identified.
--- NOTE | 2021-10-28 18:15 | ER ---
Nurse's Notes [facility] Name: Rubén Donovan Age: 81 yrs Sex: Female : 1940 Arrival Date: 10/28/2021 Time: 13:11 Bed 20 Private MD: Joo Cunningham V Diagnosis: UTI/ Urinary tract infection, site not specified;Other peripheral vertigo Presentation: 10/28 13:16 Chief complaint: Patient states: vertigo with nausea started this am . Dizziness worse jh6 when closing eyes. Coronavirus screen: Vaccine status: Patient reports receiving the 1st dose of the Covid vaccine. At this time, the client does not indicate any symptoms associated with coronavirus-19. Ebola Screen: Patient denies travel to an Ebola-affected area in the 21 days before illness onset. Initial Sepsis Screen: Does the patient meet any 2 criteria? No. Patient's initial sepsis screen is negative. Does the patient have a suspected source of infection? No. Patient's initial sepsis screen is negative. Risk Assessment: Do you want to hurt yourself or someone else? Patient reports no desire to harm self or others. Onset of symptoms was October 28, 2021. 13:16 Method Of Arrival: Wheelchair [facility] 13:16 Acuity: CHAPIN 2 jh6 Triage Assessment: 13:21 General: Appears in no apparent distress. comfortable, Behavior is calm, cooperative. jh6 Pain: Denies pain. GI: No deficits noted. Reports nausea. 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 - Social history:: Smoking status: Patient/guardian denies using tobacco. - Family history:: not pertinent. - Hospitalizations: : No recent hospitalization is reported. Screenin:55 Abuse screen: Denies threats or abuse. Denies injuries from another. Nutritional cb5 screening: No deficits noted. Tuberculosis screening: No symptoms or risk factors identified. 13:55 Fall Risk None identified. cb5 Assessment: 13:50 General: Appears in no apparent distress. comfortable, slender, well groomed, well cb5 developed, Behavior is calm, cooperative. Pain: Denies pain. Neuro: No deficits noted. Level of Consciousness is awake, alert, obeys commands, Oriented to person, place, time, situation, Appropriate for age. Cardiovascular: No deficits noted. Respiratory: No deficits noted. GI: Abdomen is round non-distended, Last BM was October 28, 2021. Bowel sounds present X 4 quads. Reports nausea, vomiting. : No deficits noted. EENT: No deficits noted. Derm: No deficits noted. Musculoskeletal: No deficits noted. 14:11 Reassessment: pt is not in room . cb5 15:50 Reassessment: provided patient with a bedside commode, informed patient to use call cb5 light and ask for nurse, don't get out of bed to ambulate due to the potential to fall because of reported vertigo from patient.. 16:00 Reassessment: M.Alphonso. aware of Blood pressure. Patient informed nurse and M.D her primary cb5 care physician is aware of her blood pressure readings being "like this".. 16:25 Reassessment: pt left for radiology dept. Informed them pt received clonidine 0.1mg. cb5 16:48 Reassessment: Patient is not in ER room #20 having MRI. cb5 Vital Signs: 13:16 BP 219 / 80; Pulse 75; Resp 18; Temp 98.4(O); Pulse Ox 100% ; Weight 54.43 kg; Height 5 jh6 ft. 1 in. (154.94 cm); Pain 2/10; 15:41 BP 138 / 126; Pulse 85; Resp 16; Pulse Ox 98% ; Pain 0/10; cb5 15:42 BP 180 / 101; Pulse 85; Resp 16; cb5 15:45 BP 204 / 87; Pulse 85; Resp 16; cb5 17:00 BP 151 / 96; Pulse 80; Resp 16; Pulse Ox 98% ; Pain 2/10; cb5 18:50 BP 153 / 83; Pulse 80; Resp 16; Temp 98.6; Pulse Ox 98% ; Pain 0/10; cb5 13:16 Body Mass Index 22.67 (54.43 kg, 154.94 cm) [facility] ED Course: 13:11 Patient arrived in ED. am2 13:12 Joo Cunningham MD is Private Physician. am2 13:19 Triage completed. 6 13:21 Arm band placed on left wrist. 6 13:50 Zhang Garcia MD is Attending Physician. rn 13:55 Patient has correct armband on for positive identification. Call light in reach. Side cb5 rails up X 1. 13:55 No provider procedures requiring assistance completed. cb5 14:08 Mojgan Araujo, RN is Primary Nurse. cb5 14:14 CT Head Brain wo Cont In Process Unspecified. EDMS 14:31 Protime (+inr) Sent. cb5 14:31 Ptt, Activated Sent. cb5 14:31 Basic Metabolic Panel Sent. cb5 14:32 CBC with Diff Sent. cb5 14:32 Brain Wo Cont MRI Sent. cb5 14:40 Urine Microscopic Only Sent. cb5 16:51 Brain Wo Cont MRI In Process Unspecified. EDMS 19:00 IV discontinued. cb5 Administered Medications: 14:39 Drug: NS 0.9% 500 ml Route: IV; Rate: bolus; Site: right antecubital; cb5 14:39 Drug: Meclizine 50 mg Route: PO; cb5 14:40 Drug: Zofran (Ondansetron) 4 mg Route: IVP; Site: right antecubital; cb5 16:17 Drug: cloNIDine 0.1 mg Route: PO; cb5 17:14 Drug: Rocephin (cefTRIAXone) 1 grams Route: IV; Rate: calculated rate; Site: left cb5 forearm; Outcome: 18:15 Discharge ordered by . rn 19:00 Discharged to home ambulatory. cb5 19:00 Condition: stable 19:00 Discharge instructions given to patient. 19:02 Patient left the ED. cb5 Signatures: Dispatcher [employer] EDMS Zhang Garcia MD MD rn Moreno, Amanda 2 Shrelyn Lockett RN RN [facility] Mojgan Araujo, RN RN 5 Corrections: (The following items were deleted from the chart) 13:21 13:19 Home Meds: Plavix Oral; [place] [id number] 13:27 13:16 Acuity: CHAPIN 3 jh6 jh6
--- NOTE | 2021-10-28 18:16 | EDPHYS ---
Physician Documentation [facility] Name: Rubén Donovan Age: 81 yrs Sex: Female : 1940 Arrival Date: 10/28/2021 Time: 13:11 Bed 20 Private MD: Joo Cunningham V ED Physician Zhang Garcia HPI: 10/28 15:22 This 81 yrs old Female presents to ER via Wheelchair with complaints of Dizziness, rn Nausea/Vomiting. 15:22 The patient presents with dizziness, vertigo. Onset: The symptoms/episode rn began/occurred this morning. Context: occurred at home, occurred while the patient was at rest, just prior to the episode the patient experienced no apparent symptoms. Modifying factors: The symptoms are alleviated by holding head still, lying down, the symptoms are aggravated by movement of head, standing up, changing position. Severity of symptoms: At their worst the symptoms were moderate in the emergency department the symptoms are unchanged. The patient has experienced similar episodes in the past. The patient has not recently seen a physician. Patient reports experiencing vertigo since this morning. Has had vertigo multiple times in the past. Reports feels similar but this time is worse when she closes her eyes. Denies focal neurological deficit. States worse with moving head and changing position. Is associated with nausea and vomiting. Reports mild headache.. 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 - Social history:: Smoking status: Patient/guardian denies using tobacco. - Family history:: not pertinent. - Hospitalizations: : No recent hospitalization is reported. ROS: 15:22 Constitutional: Negative for fever, chills, and weight loss, Eyes: Negative for injury, rn pain, redness, and discharge, ENT: Negative for injury, pain, and discharge, Neck: Negative for injury, pain, and swelling, Cardiovascular: Negative for chest pain, palpitations, and edema, Respiratory: Negative for shortness of breath, cough, wheezing, and pleuritic chest pain, Abdomen/GI: Negative for abdominal pain, diarrhea, and constipation, Back: Negative for injury and pain, : Negative for injury, bleeding, discharge, and swelling, MS/Extremity: Negative for injury and deformity, Skin: Negative for injury, rash, and discoloration, Neuro: Negative for headache, weakness, numbness, tingling, and seizure. Exam: 15:22 Constitutional: This is a well developed, well nourished patient who is awake, alert, rn and in no acute distress. Head/Face: Normocephalic, atraumatic. Eyes: Periorbital areas with no swelling, redness, or edema. Cardiovascular: Regular rate and rhythm. No pulse deficits. Respiratory: No increased work of breathing, no retractions or nasal flaring. Abdomen/GI: Soft, non-tender Skin: Warm, dry MS/ Extremity: Pulses equal, no cyanosis. Neurovascular intact. Full, normal range of motion. Equal circumference. Neuro: Awake and alert, GCS 15, oriented to person, place, time, and situation. Cranial nerves II-XII grossly intact. Motor strength 5/5 in all extremities. Sensory grossly intact. Cerebellar exam normal. Vital Signs: 13:16 BP 219 / 80; Pulse 75; Resp 18; Temp 98.4(O); Pulse Ox 100% ; Weight 54.43 kg; Height 5 [facility] ft. 1 in. (154.94 cm); Pain 2/10; 15:41 BP 138 / 126; Pulse 85; Resp 16; Pulse Ox 98% ; Pain 0/10; cb5 15:42 BP 180 / 101; Pulse 85; Resp 16; cb5 15:45 BP 204 / 87; Pulse 85; Resp 16; cb5 17:00 BP 151 / 96; Pulse 80; Resp 16; Pulse Ox 98% ; Pain 2/10; cb5 18:50 BP 153 / 83; Pulse 80; Resp 16; Temp 98.6; Pulse Ox 98% ; Pain 0/10; cb5 13:16 Body Mass Index 22.67 (54.43 kg, 154.94 cm) [facility] MDM: 13:50 Patient medically screened. rn 18:12 Differential diagnosis: cardiac arrhythmia, CVA, generalized weakness, idiopathic rn dizziness, TIA, vertigo, UTI. Data reviewed: vital signs, nurses notes, lab test result(s), EKG, radiologic studies, CT scan, MRI. Data reviewed: and as a result, I will discharge patient. Counseling: I had a detailed discussion with the patient and/or guardian regarding: the historical points, exam findings, and any diagnostic results supporting the discharge/admit diagnosis, lab results. Counseling: I had a detailed discussion with the patient and/or guardian regarding: radiology results, the need for outpatient follow up, to return to the emergency department if symptoms worsen or persist or if there are any questions or concerns that arise at home. Response to treatment: the patient's symptoms have markedly improved after treatment, and as a result, I will discharge patient. Special discussion: I discussed with the patient/guardian in detail that at this point there is no indication for admission to the hospital. It is understood, however, that if the symptoms persist or worsen the patient needs to return immediately for re-evaluation. ED course: Pt feels much better, dizziness markedly improved, CT head and MRI without acute infarct or findings. Urine shows UTI. Will dc home with abx and prn meclizine.. 10/28 13:59 Order name: CBC with Diff; Complete Time: 16:59 rn 10/28 13:59 Order name: Basic Metabolic Panel; Complete Time: 16:11 10/28 13:59 Order name: Protime (+inr); Complete Time: 16:11 rn 10/28 13:59 Order name: Ptt, Activated; Complete Time: 16:11 rn 10/28 13:59 Order name: Urine Microscopic Only; Complete Time: 16:11 rn 10/28 15:17 Order name: Urine Culture EDWV 10/28 13:59 Order name: CT Head Brain wo Cont; Complete Time: 16:11 rn 10/28 13:59 Order name: Brain Wo Cont MRI; Complete Time: 17:25 rn 10/28 16:28 Order name: CBC Smear Scan; Complete Time: 16:59 [facility] 10/28 13:59 Order name: IV Start; Complete Time: 14:32 rn 10/28 13:59 Order name: EKG; Complete Time: 14:01 rn 10/28 13:59 Order name: EKG - Nurse/Tech; Complete Time: 14:09 rn 10/28 13:59 Order name: Urine Dipstick-Ancillary (obtain specimen); Complete Time: 14:40 rn Administered Medications: 14:39 Drug: NS 0.9% 500 ml Route: IV; Rate: bolus; Site: right antecubital; cb5 14:39 Drug: Meclizine 50 mg Route: PO; cb5 14:40 Drug: Zofran (Ondansetron) 4 mg Route: IVP; Site: right antecubital; cb5 16:17 Drug: cloNIDine 0.1 mg Route: PO; cb5 17:14 Drug: Rocephin (cefTRIAXone) 1 grams Route: IV; Rate: calculated rate; Site: left cb5 forearm; Disposition Summary: 10/28/21 18:15 Discharge Ordered Location: Home rn Problem: new rn Symptoms: have improved rn Condition: Stable rn Diagnosis - UTI/ Urinary tract infection, site not specified rn - Other peripheral vertigo rn Followup: rn - With: Private Physician - When: As needed - Reason: Recheck today's complaints, Re-evaluation by your physician Discharge Instructions: - Discharge Summary Sheet rn - Urinary Tract Infection, Adult rn - Vertigo rn Forms: - Medication Reconciliation Form rn - Thank You Letter rn - Antibiotic churn driller - Prescription Opioid Use rn Prescriptions: - Meclizine 25 mg Oral Tablet - take 1 tablet by ORAL route every 8 hours As needed; 30 tablet; Refills: 0, rn Product Selection Permitted - cefpodoxime 100 mg Oral Tablet - take 2 tablets by ORAL route every 12 hours for 10 days take with food; 40 rn tablet; Refills: 0, Product Selection Permitted Signatures: Dispatcher [employer] Zhang Casiano MD MD rn Hastedt, Jennifer RN RN 6 Mojgan Araujo RN RN cb5 Corrections: (The following items were deleted from the chart) 13:21 13:19 Home Meds: Plavix Oral; [place] [id number]
[2021-10-28 19:09] VITALS: O2SAT 98
[2021-10-28 19:15] VITALS: BP 153/83; TEMP 98.6
--- NOTE | 2021-10-29 08:17 | EKG ---
Test Date: 2021-10-28 Test Time: 13:53:31 Foundry Helper: MEASUREMENT RESULTS: Intervals: Rate: 74 NV: 202 QRSD: 84 QT: 414 QTc: 459 Dilliner: P: 86 NV: 202 QRS: -15 T: 72 INTERPRETIVE STATEMENTS: Normal sinus rhythm Normal ECG Compared to ECG 11/30/2019 02:24:44 Left ventricular hypertrophy no longer present Electronically Signed On 10-29-21 08:13:55 BATTERY PLATE ASSEMBLER by Teto Butts
== END 2021-10-28 19:02 | disposition home or self-care (01) ==
LOC: ER 13:11
DX: N39.0 Urinary tract infection, site not specified (principal); R42 Dizziness and giddiness; I10 Essential (primary) hypertension; E78.5 Hyperlipidemia, unspecified; E03.9 Hypothyroidism, unspecified; Z79.82 Long term (current) use of aspirin; Z88.6 Allergy status to analgesic agent; Z86.73 Personal history of transient ischemic attack (TIA), and cerebral infarction without residual deficits
CPT/HCPCS: 93005; 87088; 85025; 87086; 80048; 36415; 85610; 85730; 87077; 87186; 81015; 70450; 70551; 99284; J7040; J2405; J8597

== ENCOUNTER 2022-03-02 16:26 | Emergency (ER) | payer OTHER, BC ==
--- OUTSIDE RECORDS SUMMARY | 2022-03-02 16:29 | XMS REPORT | Continuity of Care Document ---
:1940 Author Organization [facility] t Address [facility] [address] [place] [address] Care Team Providers Name Role Phone SOLIS, [...] Type Policy Number Effective Date Expiration Date Rafal tay MEDICARE PART A [id number] 2006 \T\ B 00:00:00 [employer]strap [id number] 2012 00:00:00 Problems This patient has no [...] Quantity Comments Source Exposure to Not sure [facility] SARS-CoV-2 (event) Medica l Branch Sex Assigned At [facility] Medical Branch Tobacco use and 2020-09-12 2020-09-12 Never used [facility] exposure 00:00:00 00:00:00 Medical Branch Smoking Status Start Date Stop Date Source Unknown if ever smoked [facility] Current every day smoker 2020-09-12 00:00[facility]00 [facility]dered Filled Start Stop Current Ordering [...] by mouth ity of uminum 22:19: daily. [place] (ASPIRIN, 53 Medical BUFFERED Branch ORAL) HYDROcodone [...] by mouth ity of uminum 18:58: daily. [place] (ASPIRIN, 59 Medical BUFFERED Branch ORAL) HYDROcodone 2019-09 Yes 2745 1{tbl} Take 1 Un rad -acetaminop 2-16 tablet by ity of hen 5-325 18:58: mouth [place] mg tablet 59 every 6 Medical (six) Branch hours as needed. Indication s: chronic pain vit 2019-09 Yes 1{capsu Take 1 Univers C-E-zinc 2-16 le} capsule by ity o f ox-mgean-lut 18:58: mouth 2 [place] as -zeax 59 [...] by mouth ity of uminum 18:58: daily. [place] (ASPIRIN, 59 Medical BUFFERED Branch ORAL) HYDROcodone [...] 18:35: 18:57 Starting [place] as 00 :07 [facility] Medical 09/12/20 Branch at 1235, Until [...] 18:35: 18:57 Starting [place] as 00 :07 [facility] 09/12/20 Branch at 1235, Until Thu09/12/20 at [...] 18:35: 18:57 Starting [place] as 00 :07 [facility] 09/12/20 Branch at 1235, Until Thu09/12/20 at [...] ed, Routine, Intra-op neomycin-po 2019-09 Yes PRN, [facility] [place] [facility] lymyxin-dex 2-16 Starting ity of amethasone 18:13: Thu [place] (MAXITROL) 09/12/20 Medic al 3.5 at 1213, Branch mg/g-10,000 Until unit/g-0.1 Discontinu % ed, ophthalmic Routine, ointment Intra-op Hyaluronida 2019-09 Yes PRN, [facility] [place] [facility] se, Human 2-16 Starting ity of Recomb. 18:13: Thu [place] (HYLENEX) 09/12/20 Medica l injection at 1213, Branch Until Discontinu ed, Routine, Intra-op gentamicin 2019-09 Yes PRN, Univers injection 2-16 Starting ity of 18:12: Thu [place] 09/12/20 Medical at 1212, Branch Until Discontinu ed, BELLA, Intra-op eye block 2019-09 Yes PRN, Univers syringe 11 2-16 Starting ity o f mL 18:12: Thu [place] 00 09/12/20 Medical at 1212, Branch Until Discontinu ed, Intra-op EPINEPHrine 2019-09 Yes PRN, Univer s 1:1,000 (1 2-16 Starting ity o f mg/mL) 18:12: Thu [place] (ADRENALIN) 00 09/12/20 Medi lucio injection at 1212, Branch Until Discontinu ed, Routine, Intra-op DUOVISC 2019-09 Yes PRN, Univers (DUOVISC 2-16 Starting ity of VISCO 18:12: Thu [place] ELASTIC) 3 00 09/12/20 Medic al %-4 %(0.5 at 1212, Branch mL) 1 % Until (0.55 mL) Discontinu intraocular ed, injection Routine, Intra-op dexamethaso 2019-09 Yes PRN, Univer s ne 2-16 Starting ity of (DECADRON 18:12: Thu [place] PHOSPHATE) 00 09/12/20 Medic al injection at 1212, Branch Until Discontinu ed, Routine, Intra-op ceFAZolin 2019-09 Yes PRN, Univers (ANCEF) 2-16 Starting ity of injection 18:12: Thu [place] 09/12/20 Medical at 1212, Branch Until Discontinu ed, BELLA, Intra-op carbachoL 2019-09 Yes PRN, Univers (MIOSTAT) 2-16 Starting ity of 0.01 % 18:12: Thu [place] intraocular 00 09/12/20 Medi lucio injection at 1212, Branch Until Discontinu ed, Routine, Intra-op balanced 2019-09 Yes PRN, Univers salt irrig 2-16 Starting ity o f soln comb1 18:11: Thu [place] (BSS PLUS) 00 09/12/20 Medic al ophthalmic [...] by ity of tablet 18:24: mouth 2 [place] 16 (two) Medical times Branch daily with [...] by mouth ity of uminum 18:24: daily. [place] (ASPIRIN, 16 Medical BUFFERED Branch ORAL) HYDROcodone [...] by ity of tablet 18:24: mouth 2 [place] 16 (two) Medical times Branch daily with [...] by mouth ity of uminum 18:24: daily. [place] (ASPIRIN, 16 Medical BUFFERED Branch ORAL) HYDROcodone [...] dose, Wed Med ical mg 06/20/20 at [place] 1215, Routine, DSU Pre-op water for 2020-0 Yes PRN, Univers irrigation 06-20 Starting ity o f irrigation 16:15: Thu [place] solution 06/20/[address] Until Discontinu ed, Routine, Intra-op sodium 2020-0 Yes PRN, Univers chloride 06-20 Starting ity of (NS) 16:15: Thu [place] injection 06/20/[address] Until Discontinu ed, Routine, Intra-op neomycin-po 2020-0 Yes PRN, Univer s lymyxin-dex 06-20 Starting ity of amethasone 16:15: Thu (MAXITROL) 06/20/20 at Med ical [address] [place] [address] mg/g-10,000 Until unit/g-0.1 Discontinu % ed, ophthalmic Routine, ointment Intra-op Hyaluronida 2020-0 Yes PRN, Univer s se, Human 06-20 Starting ity of Recomb. 16:14: Thu (HYLENEX) 06/20/20 at [facility] injection [address] [place] [address] Until Discontinu ed, Routine, Intra-op gentamicin 2020-0 Yes PRN, Univers injection 06-20 Starting ity of 16:14: Thu [place] 06/20/20 at [place] [address], [place] Until Discontinu ed, BELLA, Intra-op eye block 2020-0 Yes PRN, Univers syringe 11 06-20 Starting ity o f mL 16:13: Thu06/20/20 at [facility] 1113, [place] Until Discontinu ed, Intra-op EPINEPHrine 2020-0 Yes PRN, Univer s 1:1,000 (1 06-20 Starting ity o f mg/mL) 16:12: Thu (ADRENALIN) 00 06/20/20 at Or dical injection 111, [place] Until Discontinu ed, Routine, Intra-op DUOVISC 2020-0 Yes PRN, Univers (DUOVISC 06-20 Starting ity of VISCO 16:12: Thu ELASTIC) 3 06/20/20 at [facility] %-4 %(0.5 1111, [place] mL) 1 % Until (0.55 mL) Discontinu intraocular ed, injection Routine, Intra-op dexamethaso 2020-0 Yes PRN, Univer s ne 06-20 Starting ity of (DECADRON 16:12: Thu PHOSPHATE) 06/20/20 at [facility] ical injection 111, [place] Until Discontinu ed, Routine, Intra-op ceFAZolin 2020-0 Yes PRN, Univers (ANCEF) 06-20 Starting ity of injection 16:12: Thu06/20/20 at [place] [address], [place] Until Discontinu ed, BELLA, Intra-op carbachoL 2020-0 Yes PRN, Univers (MIOSTAT) 06-20 Starting ity of 0.01 % 16:11: Thu [place] intraocular 00 06/20/20 at Or dical injection 1111, [place] Until Discontinu ed, Routine, Intra-op balanced 2020-0 Yes PRN, Univers salt irrig 06-20 Starting ity o f soln comb1 16:11: Thu (BSS PLUS) 00 06/20/20 at [facility] ical ophthalmic 1111, Branch solution Until 500 mL bag Discontinu ed, Routine, Intra-op mydriatic 2020-0 2020- No .5mL 0.5 mL, Univ ers #5 06-20 Right Eye, ity of ophthalmic 16:00: 16:06 ONCE, 1 [place] as solution 00 :00 dose, Wed Medica l 0.5 mL 06/20/20 at [place] syringe 1100, Routine, DSU Pre-op lactated 2020-0 [...] by mouth ity of uminum 18:10: daily. [place] (ASPIRIN, 13 Medical BUFFERED Branch ORAL) HYDROcodone [...] 20:30:00 177 mm[Hg] Univer sity of pressure [facility] Diastolic blood 2020-09-12 20:30:00 58 mm[Hg] Unive rsity of pressure [facility] Heart rate 2020-09-12 20:30:00 84 /min [facility] [place] [facility] Body temperature 2020-09-12 20:30:00 36.67 Deborah Univ ersity of [place] [facility] Respiratory rate 2020-09-12 20:30:00 14 /min Univ ersity of [place] [facility] Oxygen saturation in 2020-09-12 20:30:00 95 /min University of Arterial blood by [facility] lucio Pulse oximetry Branch Body height 2020-09-10 16:30:00 154.9 cm [facility] [place] [facility] Body weight 2020-09-10 16:30:00 52.164 kg [facility] [place] [facility] BMI 2020-09-10 16:30:00 21.73 kg/m2 [facility] [place] [facility] Respiratory rate 2020-09-12 18:53:00 18 /min Univ ersity of [facility] Branch Systolic blood 2020-06-20 17:59:00 162 mm[Hg] Univer sity of pressure [facility] Diastolic blood 2020-06-20 17:59:00 80 mm[Hg] Unive rsity of pressure [place] Medical [place] Body temperature 2020-06-20 17:59:00 36.44 Deborah Univ ersity of [place] [facility] Respiratory rate 2020-06-20 17:59:00 14 /min Univ ersity of [place] [facility] Heart rate 2020-06-20 17:45:00 68 /min [facility] [place] [facility] Oxygen saturation in 2020-06-20 17:45:00 100 /min University of Arterial blood by [facility] lucio Pulse oximetry Branch Body height 2020-06-14 17:44:00 158.8 cm [facility] [place] [facility] Body weight 2020-06-14 17:44:00 52.164 kg [facility] [place] [facility] BMI 2020-06-14 17:44:00 20.69 kg/m2 Universi ty of [facility] [place] [facility] Branch Procedures Procedure Date / Time Performed Performing Clinician Sour e ASSIGNMENT OF BENEFITS 2020-09-11 16:55:42 Doctor Unassigned, No [facility] Name Medical Branch ASSIGNMENT OF BENEFITS 2020-06-15 17:44:48 Doctor Unassigned, No [facility] Medical [place] Encounters Start End Encounter Admission Attending Care Care Encounter Source Date/Time Date/Time Type Type Clinicians Facility Department ID 2021-07-27 Outpatient TORRES AREVALO [id number] Univers 10:29:03 JUANCHO [facility] 2021-07-26 Outpatient R SOLIS [facility] MOJGAN [id number] Univers 18:46:02 JUANCHO keira [facility] 2021-12-10 2021-12-10 Outpatient MORIAH, [facility] [id number] [place] 00:00:00 00:00:00 LUCILLE 712 Method i 2021-02-05 2021-02-06 Outpatient MAJOR, [facility] [id number] [place] 00:00:00 00:00:00 LUCILLE 191 Method i 2021-01-24 2021-01-24 Outpatient MORIAH, [facility] [id number] [place] 00:00:00 00:00:00 LUCILLE 730 Method i 2020-12-11 2020-12-11 Outpatient [facility] [id number] [place] 00:00:00 00:00:00 528 Method i 2020-12-11 2020-12-11 Outpatient MORIAH, [facility] [id number] [place] 00:00:00 00:00:00 LUCILLE 462 Method i 2020-09-12 2020-09-12 [facility] Solis [facility] [id number] Univers 10:15:00 14:52:00 Encounter Juancho Rodríguez [id number] ity of [id number] [phone] [facility] 071 [place] 2020-09-12 2020-09-12 [facility] 1. [id number] Univers 12:26:00 12:57:00 Ewa Abreu [id number] ity [id number] [id number] [facility] 020 Branch 2020-09-11 2020-09-11 Laboratory Only, Adc Test [facility] 1.2.840. [id number] Univers 10:58:45 11:13:45 Only Juancho Cruz [id number] 0 ity of [id number] [place] [id number] [facility] 353 Branch 2020-09-11 2020-09-11 Outpatient R [facility] [id number] Univers 11:00:00 11:00:00 [id number] ity of [facility] 2020-09-11 2020-09-11 Outpatient R [facility] [id number] Univers 11:00:00 11:00:00 ity of [facility] 2020-09-11 2020-09-11 Orders Doctor EWA [id number] Univers 00:00:00 00:00:00 Only UnassignedCARRIE [id number] ity of [place] [facility] [id number] [place] as [phone] [facility] 009 Branch 2020-07-10 2020-07-10 Outpatient R [facility] [id number] Univers 11:30:00 11:30:00 [id number] ity of [facility] 2020-06-20 2020-06-20 Hospital Solis [facility] [id number] Univers 10:40:00 13:24:00 Encounter Juancho Rodríguez [id number] ity of [place] [id number] [facility] [address] [id number] [facility] 071 Branch 2020-06-19 2020-06-19 Laboratory Only, Adc Test [facility] 1.2.840. 114 [id number] Univers 09:36:22 09:51:22 Only Juancho Cruz 350.1.13.1 0 ity of [id number] [place] [id number] [facility] 353 Branch 2020-06-19 2020-06-19 Outpatient R [facility] [id number] Univers 08:15:00 08:15:00 [id number] ity of [facility] 2020-06-19 2020-06-19 [facility] [id number] Univers 08:15:00 08:15:00 JUANCHO itkeira [facility] 2020-06-15 2020-06-15 Jar Capper Benito, Adc Lab Main [facility] [id number] Univers 12:47:34 13:02:34 Visit Juancho Cruz 350.1.13.1 0 ity of [place] [id number] Zack rafal Professio [phone] Or dical [address] 2020-06-15 2020-06-15 Outpatient R SOLIS [facility] [id number] Univers 12:30:00 12:30:00 JUANCHO ity of [facility] 2020-06-15 2020-06-15 Orders Doctor EWA [id number] Univers 00:00:00 00:00:00 Only Unassigned, CARRIE [id number] ity of [place] [facility] [id number] [place] as [phone] [place] [address] Branch Results This patient has no known results.
[2022-03-02] MEDS ORDERED: NA CHLORIDE 0.9% 1,000 ML ONE (17:01)
[2022-03-02 17:03] LABS: Urine Blood Negative (Negative); Urine Glucose Negative (Negative); Urine Protein Negative (Negative); Urine Specific Gravity 1.015 (1.005-1.030); Urine pH 5.5 (5.0-7.0)
--- NOTE | 2022-03-02 17:20 | RAD REPORT ---
EXAM DESCRIPTION: RAD - Chest Single View - 03/02/2022 5:12 pm CLINICAL HISTORY: COUGH Chest pain. COMPARISON: CHEST SINGLE VIEW dated 02/18/2014; CHEST SINGLE VIEW dated 10/27/2012; CHEST SINGLE VIEW dated 10/26/2012 FINDINGS: Portable technique limits examination quality. Small opacity is present in the left lung base laterally which could be atelectasis or infiltrate. Th e lungs are otherwise clear. The heart is moderately enlarged. Aortic atherosclerosis. Prominent S-sh aped thoracolumbar scoliosis.
[2022-03-02 17:23] LABS: Protime INR 1.05
[2022-03-02 17:26] LABS: Albumin 3.5 g/dL (3.4-5.0); Bilirubin Direct 0.2 mg/dL (0-0.2); Bilirubin Total 0.8 mg/dL (0.2-1.0); Magnesium 2.3 mg/dL (1.8-2.4); Potassium 3.9 mmol/L (3.5-5.1); Protein, Total 6.9 g/dL (6.4-8.2); Troponin High Sensitivity 34.2 pg/mL (<58.9)
--- NOTE | 2022-03-02 17:28 | RAD REPORT ---
EXAM DESCRIPTION: CT - Head C Spine Cap Wo Con - 03/02/2022 5:08 pm CLINICAL HISTORY: Trauma, head and neck injury. Chest, abdomen and pelvis pain. FALL COMPARISON: No comparisons TECHNIQUE: CT head without contrast. CT cervical spine without contrast with coronal and sagittal reformatted images. CT chest, abdomen and pelvis without contrast with coronal and sagittal reformatted images of the [facility] ne. All CT scans are performed using dose optimization technique as appropriate and may include automated exposure control or mA/KV adjustment according to patient size. FINDINGS: CT HEAD WITHOUT CONTRAST: No intracranial hemorrhage, hydrocephalus or extra-axial fluid collection. Mild generalized brain atr ophy is present with mild periventricular and deep white matter chronic microvascular ischemic change s. No areas of brain edema or midline shift. 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 The paranasal sinuses and mastoids are clear. The calvarium is intact. CT CERVICAL SPINE WITHOUT CONTRAST: No fracture or subluxation. 3 mm degenerative anterolisthesis of C3 on 4 is present. 3 mm degenerativ e retrolisthesis of C4 on 5. The prevertebral soft tissues are normal in thickness.Heavy bilateral at herosclerosis. CT CHEST, ABDOMEN, PELVIS WITHOUT CONTRAST: NOTE: Lack of contrast is a significant limitation in the assessment of trauma related findings. Spec ifically, solid organ, vascular and bowel evaluation is significantly limited. The lungs are clear.Moderate hiatal hernia.No pneumothorax or pericardial/pleural fluid. No evidence of intra-abdominal visceral injury, free fluid or free air is seen within the above detai led limitations. Prominent cyst right kidney. Sigmoid diverticulosis coli is present with significant stool noted in the colon. There is a T8 vertebral body compression fractures seen with surrounding thickening of the paraspinal soft tissues. Loss of vertebral body height is estimated at 80%. This is likely acute to subacute ti me frame osteoporotic fracture. No significant canal compromise. IMPRESSION: Suspected acute to subacute compression fracture affects T8 vertebral body. The surround ing paraspinal tissues are mildly thickened. There is no significant canal compromise.
[2022-03-02 17:33] LABS: Absolute Lymphocytes (CBC) 1.3 K/uL (0.7-4.9); Hematocrit 40.6 % (36.0-45.0); Lymphocytes % 6.1 % (15.3-44.8); MPV 7.4 fL (7.6-11.3); RBC Red Blood Cell Count 4.53 M/uL (3.86-4.86)
--- NOTE | 2022-03-02 17:53 | ER ---
Nurse's Notes [facility] Name: Rubén Donovan Age: 81 yrs Sex: Female : 1940 Arrival Date: 03/02/2022 Time: 16:26 Bed 7 Private MD: Joo Cunningham V Diagnosis: Fall on same level, unspecified;History of falling;Fracture of thoracic vertebra-T 8, 80% Compression Presentation: 03/02 16:25 Chief complaint: Patient states: Fall from standing. Upper back and low back pain. ll1 C-collar precautions. EMS states: VSS. C-collar in place. Coronavirus screen: Vaccine status: Patient reports receiving the 2nd dose of the covid vaccine. Client denies travel out of the [place] in the last 14 days. At this time, the client does not indicate any symptoms associated with coronavirus-19. Ebola Screen: Patient denies travel to an Ebola-affected area in the 21 days before illness onset. Initial Sepsis Screen: Does the patient meet any 2 criteria? No. Patient's initial sepsis screen is negative. Does the patient have a suspected source of infection? Yes: Bone or joint infection. Risk Assessment: Do you want to hurt yourself or someone else? Patient reports no desire to harm self or others. Onset of symptoms was March 02, 2022. 16:25 Method Of Arrival: EMS ll1 16:25 Acuity: CHAPIN 3 ll1 17:08 Care prior to arrival: None. Mechanism of Injury: Fall. Trauma event details: Injury ll1 occurred in the [facility]. Triage Assessment: 16:27 General: Appears uncomfortable, Behavior is calm, cooperative, appropriate for age. ll1 Pain: Complains of pain in lumbar area Pain currently is 7 out of 10 on a pain scale. Quality of pain is described as aching, Aggravated by increased activity. Neuro: No deficits noted. Cardiovascular: No deficits noted. Musculoskeletal: Circulation, motion, and sensation intact. Capillary refill < 3 seconds, Reports pain in lumbar area. 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 - Social history:: Smoking status: Patient denies any tobacco usage or history of. - Family history:: not pertinent. Screenin:06 Abuse screen: Denies threats or abuse. Nutritional screening: No deficits noted. ll1 Tuberculosis screening: No symptoms or risk factors identified. Fall Risk Fall in past 12 months (25 points). IV access (20 points). Gait- Impaired (20 pts.). Total [place] Fall Scale indicates High Risk Score (45 or more points). Fall prevention measures have been instituted. Side Rails Up X 2 Placed Close to Nursing Station Frequent Obs/Assessments Occuring Family Present and informed to notify staff if the need to leave the bedside As available patient and family educated on Fall Prevention Program and Strategies. Primary Survey: 17:06 NO uncontrolled hemorrhage observed. A: The client is awake and alert. The airway is ll1 patent. The client is alert. Breathing/Chest: Spontaneous respiratory effort, equal unlabored respirations, breath sounds clear bilaterally, regular pattern, symmetrical chest rise and fall. Respiratory effort: spontaneous, unlabored. Circulation: No external hemorrhage present. Regular and strong central pulse, skin warm/dry/normal color. Pulses: palpable right radial artery, right dorsalis pedis artery, left radial artery and left dorsalis pedis artery. Disability Pupils are equal, round, reactive to light and accommodation. Client is alert. Exposure/Environment: There is no evidence of uncontrolled external bleeding. A warming method has been applied: A warm blanket has been provided to the patient. 17:42 Reassessment Alertness and Airway: Awake and alert. The airway is patent. Breathing: ll1 Spontaneous respiratory effort, equal unlabored respirations, breath sounds clear bilaterally, regular pattern with symmetrical chest rise and fall. Circulation: No external hemorrhage noted. Regular and strong central pulse, skin warm/dry/normal color. Disability: Alert. Assessment: 17:05 Reassessment: No changes from previously documented assessment. Patient and/or family ll1 updated on plan of care and expected duration. Pain level reassessed. Patient is alert, oriented x 3, equal unlabored respirations, skin warm/dry/pink. to CT via stretcher. 17:42 Reassessment: No changes from previously documented assessment. Patient and/or family ll1 updated on plan of care and expected duration. Pain level reassessed. Patient is alert, oriented x 3, equal unlabored respirations, skin warm/dry/pink. 18:10 Reassessment: No changes from previously documented assessment. Patient and/or family ll1 updated on plan of care and expected duration. Pain level reassessed. Patient is alert, oriented x 3, equal unlabored respirations, skin warm/dry/pink. 18:44 Reassessment: No changes from previously documented assessment. Patient and/or family ll1 updated on plan of care and expected duration. Pain level reassessed. Patient is alert, oriented x 3, equal unlabored respirations, skin warm/dry/pink. 18:46 Reassessment: [facility] states they will be here to transport patient to [facility] in approximately 2.5 hours from this time. Vital Signs: 16:25 BP 165 / 85; Pulse 78; Resp 16; Temp 97.4; Pulse Ox 100% on R/A; Weight 54.43 kg; ll1 Height 5 ft. 1 in. (154.94 cm); Pain 7/10; 17:09 BP 141 / 85; Pulse 77; Resp 16; Pulse Ox 100% ; ll1 17:41 BP 169 / 94; Pulse 74; Resp 15; Pulse Ox 100% on R/A; ll1 18:42 BP 162 / 94; Pulse 76; Resp 15; Pulse Ox 98% ; Pain 5/10; ll1 23:00 BP 137 / 68; Pulse 72; Resp 18; Pulse Ox 99% on R/A; ke1 16:25 Body Mass Index 22.67 (54.43 kg, 154.94 cm) ll1 [place] Coma Score: 16:24 Eye Response: spontaneous(4). Verbal Response: oriented(5). Motor Response: obeys ll1 commands(6). Total: 15. Trauma Score (Adult): 16:25 Eye Response: spontaneous(1); Verbal Response: oriented(1); Motor Response: obeys ll1 commands(2); Systolic BP: > 89 mm Hg(4); Respiratory Rate: 10 to 29 per min(4); Sabrina Score: 15; Trauma Score: 12 ED Course: 16:24 Arm band placed on Patient placed in an exam room, on a stretcher. ll1 16:26 Patient arrived in ED. am2 16:26 Joo Cunningham MD is Private Physician. am2 16:29 Austin Lindsey MD is Attending Physician. [facility] 16:43 Yohan Montelongo RN is Primary Nurse. ll1 16:51 Inserted saline lock: 22 gauge in right antecubital area, using aseptic technique. ll1 Blood collected. 17:05 Triage completed. ll1 17:08 Patient maintains SpO2 saturation greater than 95% on room air. Thermoregulation: warm ll1 blanket given to patient. 17:08 Patient has correct armband on for positive identification. Bed in low position. Call ll1 light in reach. Side rails up X2. Client placed on continuous cardiac and pulse oximetry monitoring. NIBP monitoring applied. 17:10 CT Traumagram (Head C Spine CAP wo con) In Process Unspecified. EDMS 17:14 XRAY Chest (1 view) In Process Unspecified. EDMS 17:[address] Lindsey with Demetrice from the [facility] due to trauma. 18:17 administrative approval given by Demetrice Ramirez credit collection associate fashion coordinator/ patient eb has been accepted to [facility] ER/ Dr. Craig has accepted the patient without conference / report to be called to [phone]. 18:42 No provider procedures requiring assistance completed. Patient transferred, IV remains ll1 in place. Administered Medications: 17:34 Drug: NS 0.9% 500 ml Route: IV; Rate: bolus; Site: right antecubital; 18:41 Follow up: Response: No adverse reaction; IV Status: Infusion continued upon transfer; ll1 IV Intake: 50ml 18:00 Drug: [place] (HYDROcodone-acetaminophen) 5 mg-325 mg 1 tabs {Note: rass 0, pain 7/10.} ll1 Route: PO; 18:41 Follow up: Response: No adverse reaction; Pain is decreased; RASS: Alert and Calm (0) ll1 18:41 Not Given (Patient Refused): NS 0.9% 1000 ml IV at 125 ml/hr continuous ll1 23:00 Drug: Coreg (carvedilol) 12.5 mg Route: PO; ke1 23:07 Follow up: Response: No adverse reaction kd3 Medication: 17:08 VIS not applicable for this client. ll1 Intake: 18:41 IV: 50ml; Total: 50ml. ll1 Output: 16:25 Urine: 200ml (Voided); Total: 200ml. ll1 Outcome: 17:52 ER care complete, transfer ordered by MD. lea 18:42 Transferred by ground EMS to [facility], Transfer form completed. ll1 18:42 Condition: stable 18:42 Instructed on the need for transfer, notified daughter Danisha of transfer facility and injuries [phone] 18:42 Patient's length of stay in the Emergency Department was greater than 2 hours. 23:08 Patient left the ED. kd3 Signatures: Dispatcher [employer] EDMS Austin Lindsey MD MD cha Smirch, Shelby, RN RN Alecia Finch Elizabeth eb Lewis, Lynsay, RN RN ll1 Kira Dixon RN RN kd3 Sherita Ceja RN RN ke1 Corrections: (The following items were deleted from the chart) 18:07 18:[address] Lindsey with Demetrice from the [facility] Transfer center due to trauma eb 18:48 18:43 administrative approval given by Demetrice Ramirez credit collection associate fashion coordinator/ eb patient has been accepted to [facility] ER/ Dr. Craig has accepted the patient without conference / report to be called to [phone]
--- NOTE | 2022-03-02 17:53 | EDPHYS ---
Physician Documentation [facility] Name: Rubén Donovan Age: 81 yrs Sex: Female : 1940 Arrival Date: 03/02/2022 Time: 16:26 Bed 7 Private MD: Joo Cunningham V ED Physician Austin Lindsey HPI: 03/02 16:40 This 81 yrs old Female presents to ER via Unassigned with complaints of Fall venu Injury. 16:40 Details of fall: The patient fell from an upright position, while walking. Onset: The venu symptoms/episode began/occurred just prior to arrival. Associated injuries: The patient sustained injury to the head, neck injury, upper back injury, injury to the low back. Severity of symptoms: At their worst the symptoms were mild, in the emergency department the symptoms are unchanged. The patient has not experienced similar symptoms in the past. 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 - Social history:: Smoking status: Patient denies any tobacco usage or history of. - Family history:: not pertinent. ROS: 16:41 Constitutional: Negative for fever, chills, and weight loss, Eyes: Negative for injury, venu pain, redness, and discharge, ENT: Negative for injury, pain, and discharge, Neck: Negative for injury, pain, and swelling, Cardiovascular: Negative for chest pain, palpitations, and edema, Respiratory: Negative for shortness of breath, cough, wheezing, and pleuritic chest pain, Abdomen/GI: Negative for abdominal pain, nausea, vomiting, diarrhea, and constipation, : Negative for injury, bleeding, discharge, and swelling, MS/Extremity: Negative for injury and deformity, Skin: Negative for injury, rash, and discoloration, Neuro: Negative for headache, weakness, numbness, tingling, and seizure, Psych: Negative for depression, anxiety, suicide ideation, homicidal ideation, and hallucinations, Allergy/Immunology: Negative for hives, rash, and allergies, Endocrine: Negative for neck swelling, polydipsia, polyuria, polyphagia, and marked weight changes, Hematologic/Lymphatic: Negative for swollen nodes, abnormal bleeding, and unusual bruising. 16:41 Back: Positive for pain at rest, of the thoracic area, lumbar area and sacrum. Exam: 16:41 Constitutional: This is a well developed, well nourished patient who is awake, alert, venu and in no acute distress. Head/Face: Normocephalic, atraumatic. Eyes: Pupils equal round and reactive to light, extra-ocular motions intact. Lids and lashes normal. Conjunctiva and sclera are non-icteric and not injected. Cornea within normal limits. Periorbital areas with no swelling, redness, or edema. ENT: Nares patent. No nasal discharge, no septal abnormalities noted. Tympanic membranes are normal and external auditory canals are clear. Oropharynx with no redness, swelling, or masses, exudates, or evidence of obstruction, uvula midline. Mucous membranes moist. Neck: Trachea midline, no thyromegaly or masses palpated, and no cervical lymphadenopathy. Supple, full range of motion without nuchal rigidity, or vertebral point tenderness. No Meningismus. Chest/axilla: Normal chest wall appearance and motion. Nontender with no deformity. No lesions are appreciated. Cardiovascular: Regular rate and rhythm with a normal S1 and S2. No gallops, murmurs, or rubs. Normal PMI, no JVD. No pulse deficits. Respiratory: Lungs have equal breath sounds bilaterally, clear to auscultation and percussion. No rales, rhonchi or wheezes noted. No increased work of breathing, no retractions or nasal flaring. Abdomen/GI: Soft, non-tender, with normal bowel sounds. No distension or tympany. No guarding or rebound. No evidence of tenderness throughout. Skin: Warm, dry with normal turgor. Normal color with no rashes, no lesions, and no evidence of cellulitis. MS/ Extremity: Pulses equal, no cyanosis. Neurovascular intact. Full, normal range of motion. Neuro: Awake and alert, GCS 15, oriented to person, place, time, and situation. Cranial nerves II-XII grossly intact. Motor strength 5/5 in all extremities. Sensory grossly intact. Cerebellar exam normal. Normal gait. Psych: Awake, alert, with orientation to person, place and time. Behavior, mood, and affect are within normal limits. 16:41 Back: pain, that is mild, ROM is painful, normal spinal alignment noted, CVA tenderness, is absent, vertebral tenderness, is not appreciated. 18:04 ECG was reviewed by the Attending Physician. [facility] Vital Signs: 16:25 BP 165 / 85; Pulse 78; Resp 16; Temp 97.4; Pulse Ox 100% on R/A; Weight 54.43 kg; ll1 Height 5 ft. 1 in. (154.94 cm); Pain 7/10; 17:09 BP 141 / 85; Pulse 77; Resp 16; Pulse Ox 100% ; ll1 17:41 BP 169 / 94; Pulse 74; Resp 15; Pulse Ox 100% on R/A; ll1 18:42 BP 162 / 94; Pulse 76; Resp 15; Pulse Ox 98% ; Pain 5/10; ll1 23:00 BP 137 / 68; Pulse 72; Resp 18; Pulse Ox 99% on R/A; ke1 16:25 Body Mass Index 22.67 (54.43 kg, 154.94 cm) ll1 [place] Coma Score: 16:24 Eye Response: spontaneous(4). Verbal Response: oriented(5). Motor Response: obeys ll1 commands(6). Total: 15. Trauma Score (Adult): 16:25 Eye Response: spontaneous(1); Verbal Response: oriented(1); Motor Response: obeys ll1 commands(2); Systolic BP: > 89 mm Hg(4); Respiratory Rate: 10 to 29 per min(4); Sabrina Score: 15; Trauma Score: 12 MDM: 16:29 Patient medically screened. [facility] 16:41 Differential diagnosis: chronic back pain, Fatigue Fracture Osteoporosis Scoliosis venu spinal injury, sprain, vertebral fracture. Differential diagnosis: closed head injury, contusion, fracture, multiple trauma, sprain, strain. Data reviewed: vital signs, nurses notes, lab test result(s), EKG, radiologic studies, CT scan, plain films. Data interpreted: groundwater monitoring technician: rate is 80 beats/min, rhythm is regular, Pulse oximetry: on room air is 99 %. Test interpretation: by ED physician or midlevel provider: ECG, plain radiologic studies. Counseling: I had a detailed discussion with the patient and/or guardian regarding: the historical points, exam findings, and any diagnostic results supporting the discharge/admit diagnosis, lab results, radiology results. 03/02 16:40 Order name: Basic Metabolic Panel; Complete Time: 17:39 [facility] 03/02 16:40 Order name: CBC with Diff [facility] 03/02 16:40 Order name: LFT's; Complete Time: 17:39 [facility] 03/02 16:40 Order name: Magnesium; Complete Time: 17:39 [facility] 03/02 16:40 Order name: NT PRO-BNP; Complete Time: 17:39 [facility] 03/02 16:40 Order name: PT-INR; Complete Time: 17:25 [facility] 03/02 16:40 Order name: Troponin HS; Complete Time: 17:39 [facility] 03/02 16:40 Order name: XRAY Chest (1 view); Complete Time: 17:25 [facility] 03/02 16:40 Order name: CT Traumagram (Head C Spine CAP wo con); Complete Time: 17:39 [facility] 03/02 17:03 Order name: Urine Dipstick-Ancillary; Complete Time: 17:20 [facility] 03/02 18:00 Order name: SARS-COV-2 RT PCR (Document "Date of Onset" if Symptomatic) [facility] 03/02 21:47 Order name: CBC Smear Scan [facility] 03/02 16:40 Order name: EKG; Complete Time: 16:40 [facility] 03/02 16:40 Order name: Cardiac monitoring; Complete Time: 17:34 [facility] 03/02 16:40 Order name: EKG - Nurse/Tech; Complete Time: 17:34 [facility] 03/02 16:40 Order name: IV Saline Lock; Complete Time: 16:43 [facility] 03/02 16:40 Order name: Labs collected and sent; Complete Time: 16:43 [facility] 03/02 16:40 Order name: O2 Per Protocol; Complete Time: 16:43 [facility] 03/02 16:40 Order name: O2 Sat Monitoring; Complete Time: 16:43 [facility] 03/02 16:40 Order name: Urine Dipstick-Ancillary (obtain specimen); Complete Time: 17:34 [facility] EC:04 Rate is 74 beats/min. Rhythm is regular. QRS [place] is Normal. RI interval is prolonged venu at 210 msec. QRS interval is normal. QT interval is normal. No Q waves. No ST changes noted. Clinical impression: 1st degree heart block and No evidence of ischemia. Administered Medications: 17:34 Drug: NS 0.9% 500 ml Route: IV; Rate: bolus; Site: right antecubital; 18:41 Follow up: Response: No adverse reaction; IV Status: Infusion continued upon transfer; ll1 IV Intake: 50ml 18:00 Drug: [place] (HYDROcodone-acetaminophen) 5 mg-325 mg 1 tabs {Note: rass 0, pain 7/10.} ll1 Route: PO; 18:41 Follow up: Response: No adverse reaction; Pain is decreased; RASS: Alert and Calm (0) ll1 18:41 Not Given (Patient Refused): NS 0.9% 1000 ml IV at 125 ml/hr continuous ll1 23:00 Drug: Coreg (carvedilol) 12.5 mg Route: PO; ke1 23:07 Follow up: Response: No adverse reaction kd3 Disposition Summary: 03/02/22 17:52 Transfer Ordered Transfer Location: [facility] venu Reason: Higher level of care venu Condition: Fair venu Problem: new venu Symptoms: have improved venu Accepting Physician: TO [facility](03/02/22 23:08) kd3 Diagnosis - Fall on same level, unspecified venu - History of falling venu - Fracture of thoracic vertebra - T 8, 80% Compression venu Forms: - Medication Reconciliation Form venu - SBAR form venu Signatures: Dispatcher [employer] EDAustin Shannon MD MD cha Smirch, Shelby, RN RN ss Yohan Montelongo RN RN ll1 Kira Dixon RN RN kd3 Sherita Ceja RN RN ke1 Corrections: (The following items were deleted from the chart) 23:08 17:52 TO [facility] venu kd3
[2022-03-02] MEDS ORDERED: HYDROCODONE/APAP 5/325 MG TAB ONE (18:03)
[2022-03-02 21:46] LABS: Blood Morphology Comment NOT SEEN (NOT SEEN); Platelet Estimate ADEQ; White Blood Cell Scan OK (OK)
[2022-03-02] MEDS ORDERED: carvediloL 6.25 MG TAB ONE (23:03)
[2022-03-02 23:47] VITALS: BP 137/68; O2SAT 99
--- NOTE | 2022-03-03 13:21 | EKG ---
Test Date: 2022-03-02 Test Time: 17:28:51 Occupational Health And Safety Manager: LML MEASUREMENT RESULTS: Intervals: Rate: 74 AL: 210 QRSD: 80 QT: 396 QTc: 439 Eek: P: 67 AL: 210 QRS: -33 T: 90 INTERPRETIVE STATEMENTS: Sinus rhythm with 1st degree AV block Left axis deviation Left ventricular hypertrophy with repolarization abnormality Abnormal ECG Compared to ECG 10/28/2021 13:53:31 First degree AV block now present Left-axis deviation now present Left ventricular hypertrophy now present Early repolarization now present Electronically Signed On 03-03-22 13:19:18 CDT by Matthew Alvarez
== END 2022-03-02 23:08 | disposition short-term general hospital (02) ==
LOC: ER 16:26
DX: S22.060A Wedge compression fracture of T7-T8 vertebra, initial encounter for closed fracture (principal); W18.30XA Fall on same level, unspecified, initial encounter; Z91.81 History of falling; Z20.822 Contact with and (suspected) exposure to COVID-19; Z88.5 Allergy status to narcotic agent; I10 Essential (primary) hypertension
CPT/HCPCS: 93005; 85025; 80048; 36415; 83735; 85610; 80076; 81003; 84484; 83880; 70450; 71250; 72125; 71045; 96360; 99285; U0003; J7040